=== PATIENT | male | born 1950 | race Caucasian/White ===

== ENCOUNTER → 2018-02-17 10:20 | Outpatient (CLI) | payer MEDICARE, SELFPAY ==
[2018-02-17 13:01] LABS: Anion Gap 13.3 mEq/L (5-15); Blood Urea Nitrogen 15 mg/dL (7-18); Carbon Dioxide 29 mmol/L (21.0-32.0); Chloride 104 mmol/L (98-107); Creatinine,Serum 0.91 mg/dL (0.70-1.30); Estimated Glomerular Filt Rate 83 ml/min (>60); GFR (African American) 101 ML/MIN (>60); Glucose 111 mg/dL (74-106); Potassium 4.3 mmoL/L (3.5-5.1); Sodium 142 mmol/L (136-145)
== END ==
PROVIDERS: Visit Provider Internal Medicine Cardiovascular Disease
DX: Z82.49 Family history of ischemic heart disease and other diseases of the circulatory system (principal); R53.83 Other fatigue; G47.33 Obstructive sleep apnea (adult) (pediatric); R40.0 Somnolence; G47.9 Sleep disorder, unspecified; I10 Essential (primary) hypertension; R06.02 Shortness of breath
CPT/HCPCS: 36415; 80048

== ENCOUNTER → 2018-02-24 14:21 | Outpatient (CLI) | payer MEDICARE, OTHER, SELFPAY ==
--- NOTE | 2018-02-24 14:25 | CT_ITS ---
CT heart w calcium score INDICATION: ITS.REASON: dyspnea ORDERING PHYSICIAN: Varun Gonzalez MD PATIENT AGE: 67 years COMPARISON: TECHNIQUE: Axial images are obtained without contrast. Sagittal and coronal reformatted images are reviewed as well. All CT scans at the facility use one or more dose reduction, viz: automated exposure control; ma/kV adjustment per patient size (including targeted exams where dose is matched to indication; i.e. head); or iterative reconstruction technique. FINDINGS: Coronary artery calcium score is 2. Minimal plaque burden with low cardiovascular disease risk Other findings: No other pertinent findings IMPRESSION: Low cardiovascular disease risk
--- NOTE | 2018-02-24 14:25 | CA_ITS ---
PROCEDURE: 2-D M-mode and color Doppler study INDICATIONS FOR THE TEST: Chest pain COPD Heart Murmur Tobacco Smoking Palpitations FatigueX Syncope Edema HypertensionXDiabetes Mellitus Rheumatic Fever SOBXDOEXObesityXHyperlipidemia Family History HDXX Additional History PATIENT INFORMATION HEIGHT: 70 WEIGHT:225 GENDER: Male B/P:133/90 2-D/M-MODE INTERPRETATION: 2-D MEASUREMENTS OBSERVED VALUES IN CMS Right Ventricular Dimension (RVDd) 2.6 Interventricular Septum (Thickness)(IVsd) .9 Left Ventricular Internal Dimensions(LVIDd) 5.4 Left Ventricular Posterior Wall (Thickness)(LVPWd) .9 Aortic Root 2.7 Aortic Cusp Separation 1.8 Left Atrial Dimensions (LAD) 3.7 2D 1. Technically difficult study because of the patient's factor and poor acoustic windows 2. The left atrium is mildly enlarged, left ventricle is normal size, visually estimated ejection fraction approximately 45%, there appears to be mild hypokinesis involving the distal septum and apical wall. 3. The aortic valve is minimally thickened and fibrosed. 4. The mitral and tricuspid valve leaflets are minimally thickened. 5. The pulmonic valve is poorly visualized. 6. No significant pericardial effusion noted. DOPPLER INTERROGATION: Doppler interrogation of the aortic, mitral and tricuspid valvular presence of mild mitral and tricuspid regurgitation, tricuspid and jet velocity insufficient for acquisition of the right ventricular systolic pressure, grade 1 diastolic dysfunction seen without tissue Doppler evidence of raised left atrial pressure. CONCLUSION: 1. Mildly enlarged left atrium, normal left ventricular size, visually estimated ejection fraction 45% with segmental wall motion abnormality described above. 1 diastolic dysfunction seen without tissue Doppler evidence of raised left atrial pressure. 2. Mild mitral and tricuspid regurgitation. 3. No significant pericardial effusion noted.
== END ==
PROVIDERS: Family Provider Family Medicine; PCP Family Medicine; Visit Provider Internal Medicine Cardiovascular Disease
DX: R06.02 Shortness of breath (principal); R06.00 Dyspnea, unspecified; R06.01 Orthopnea
CPT/HCPCS: 75571; 93306

== ENCOUNTER → 2018-06-18 20:02 | Outpatient (CLI) | payer MEDICARE, OTHER, SELFPAY | PROVIDERS: PCP Family Medicine; Visit Provider Internal Medicine Cardiovascular Disease | DX: G47.33 Obstructive sleep apnea (adult) (pediatric) (principal); I10 Essential (primary) hypertension; G47.10 Hypersomnia, unspecified; R06.83 Snoring | CPT/HCPCS: 95810 ==

== ENCOUNTER → 2018-12-19 10:28 | Outpatient (CLI) | payer MEDICARE, OTHER, SELFPAY ==
[2018-12-19 14:23] LABS: Blood Urea Nitrogen 17 mg/dL (7-18); Calcium 9.2 mg/dL (8.5-10.1); Carbon Dioxide 27 mmol/L (21.0-32.0); Chloride 102 mmol/L (98-107); Creatinine,Serum 1.04 mg/dL (0.70-1.30); Estimated Glomerular Filt Rate 71 ml/min (>60); GFR (African American) 86 ML/MIN (>60); Glucose 122 mg/dL (74-106); Sodium 142 mmol/L (136-145)
== END ==
PROVIDERS: Visit Provider Internal Medicine Cardiovascular Disease
DX: I51.9 Heart disease, unspecified (principal); R06.00 Dyspnea, unspecified; R60.9 Edema, unspecified
CPT/HCPCS: 36415; 80048; 83880

== ENCOUNTER → 2020-06-28 10:29 | Outpatient (POV) | payer MEDICARE, OTHER, SELFPAY | PROVIDERS: Visit Provider Dermatology | DX: Z00.00 Encounter for general adult medical examination without abnormal findings (principal) ==

== ENCOUNTER → 2020-07-25 14:37 | Outpatient (CLI) | payer MEDICARE, OTHER, SELFPAY ==
[2020-07-25 15:14] LABS: Microscopic, Urine URINE MICROSCOPIC (MICROSCOPIC)
[2020-07-25 15:18] LABS: Appearance,Urine CLEAR (Clear); Bilirubin,Urine Negative (Negative); Blood, Urine Negative (Negative); Color,Urine YELLOW (Yellow); Glucose,Urine (UA) Negative (Negative); Ketones,Urine Negative (Negative); Leukocyte Esterase,Urine Negative (Negative); Nitrate,Urine Negative (Negative); Protein,Urine Negative (Negative); Urobilinogen,Urine 0.2 EU/dl (0.2)
[2020-07-25 15:22] LABS: Basophils # 0.1 K/mm3 (0-0.2); Eosinophils # 0.3 K/mm3 (0.0-0.4); Hematocrit 43.8 % (42.0-52.0); Hemoglobin 14.9 g/dL (14.1-18.0); Lymphocytes # 2.8 K/mm3 (0.7-4.5); Lymphocytes % 34.1 % (10-50); Mean Corpuscular HGB Conc 34.1 g/dL (31.8-35.4); Mean Corpuscular Hemoglobin 31.5 pg (27.0-31.2); Mean Corpuscular Volume 92.3 fl (80-94); Mean Platelet Volume 8.6 fl (7.4-10.4); Monocytes # 0.6 K/mm3 (0.1-1.0); Monocytes % 7.9 % (1.7-9.3); Neutrophils # 4.3 K/mm3 (1.8-7.8); Platelet Count 272 K/mm3 (142-424); Red Blood Count 4.74 M/mm3 (4.60-6.20); Red Cell Distribution Width 13.2 % (11.5-17.5); White Blood Count 8.2 K/mm3 (4.8-10.8)
[2020-07-25 16:01] LABS: WBC,Urine Occasional #/hpf (0-3)
[2020-07-27 15:59] LABS: Covid-19 Nasal PCR Sendout Lex Not Detected
== END ==
PROVIDERS: PCP Family Medicine; Visit Provider Family Medicine
DX: Z03.818 Encounter for observation for suspected exposure to other biological agents ruled out (principal)
CPT/HCPCS: 36415; 81001; 85025; U0004

== ENCOUNTER → 2020-10-26 14:37 | Outpatient (CLI) | payer MEDICARE, OTHER, SELFPAY ==
[2020-10-26 15:23] LABS: Basophils # 0.1 K/mm3 (0-0.2); Basophils % 1.6 % (0.1-2.0); Eosinophils # 0.1 K/mm3 (0.0-0.4); Eosinophils % 1.5 % (0.1-12.0); Hematocrit 51.7 % (42.0-52.0); Hemoglobin 16.8 g/dL (14.1-18.0); Lymphocytes # 2.1 K/mm3 (0.7-4.5); Lymphocytes % 25.2 % (10-50); Mean Corpuscular HGB Conc 32.6 g/dL (31.8-35.4); Mean Corpuscular Hemoglobin 29.7 pg (27.0-31.2); Mean Corpuscular Volume 91.3 fl (80-94); Mean Platelet Volume 8.6 fl (7.4-10.4); Monocytes # 0.8 K/mm3 (0.1-1.0); Neutrophils # 5.3 K/mm3 (1.8-7.8); Neutrophils % 62.6 % (37.0-80.0); Platelet Count 288 K/mm3 (142-424); Red Blood Count 5.66 M/mm3 (4.60-6.20); Red Cell Distribution Width 13.9 % (11.5-17.5); White Blood Count 8.4 K/mm3 (4.8-10.8)
[2020-10-26 15:34] LABS: Anion Gap 10.2 mEq/L (5-15); Blood Urea Nitrogen 15 mg/dl (9-20); Calcium 9.5 mg/dl (8.4-10.2); Carbon Dioxide 28 mmol/L (22.0-30.0); Chloride 103 mmol/L (98-107); Estimated Glomerular Filt Rate 84 ml/min (>60); GFR (African American) 101 ML/MIN (>60); Glucose 112 mg/dl (74-100); Potassium 4.2 mmoL/L (3.5-5.1); Sodium 137 mmol/L (136-145)
[2020-10-27 14:44] LABS: Covid-19 Nasal PCR Sendout P&C NEGATIVE
== END ==
PROVIDERS: Internal Medicine Cardiovascular Disease; PCP Family Medicine; Visit Provider Family Medicine
DX: E78.2 Mixed hyperlipidemia (principal); I10 Essential (primary) hypertension; I25.10 Atherosclerotic heart disease of native coronary artery without angina pectoris; I42.9 Cardiomyopathy, unspecified; R94.31 Abnormal electrocardiogram [ECG] [EKG]; Z03.818 Encounter for observation for suspected exposure to other biological agents ruled out
CPT/HCPCS: 36415; 80048; 85025; U0004

== ENCOUNTER → 2020-11-01 13:00 | Outpatient (CLI) | payer MEDICARE, OTHER, SELFPAY ==
--- NOTE | 2020-11-01 13:01 | CA_ITS ---
APPROVED REPORT EXAM: Comprehensive 2D, Doppler, and color-flow Echocardiogram Cnc Service Engineer: Lilliana Adorno RT(R) Ht: 5 ft 10 in Wt: 230lbs BSA: 2.21 BP: 127/87 mmHg Indications: CAD, HTN, hyperlipidemia, palpitations, CM, DD 2D Dimensions LVOT 2.09 cm (M/F) 1.5-2.5 LVEF (Erwin's) 42.00 % M: 52 - 72 LV Volume 88.50 mL M: 62 - 150 LV Volume Index 40.04 mL/m2 M: 34 - 74 M-Mode Dimensions RVDd 3.11 cm (0.9-2.6) LA Diam 2.52 cm (1.9-4.0) LVDd 3.99 cm (3.5-5.7) Ao Diam 3.28 cm (2.0-3.7) LVDs 3.04 cm (3.5-5.7) IVSd 1.25 cm (0.6-1.1) PWd 1.14 cm (0.6-1.1) EF (Teich) 48.00% FS 23.80% EDV (Teich) 69.60 mL ESV (Teich) 36.20 mL LV Diastology E Decel Time 190.00 (160-240 msec) E/A Ratio 0.5 MED E' 5.30 (< 7 cm/sec) E'/MED E' Ratio 9.85 (>14) LAT E' 9.20 (<10 cm/sec) E/LAT E' Ratio 5.67 (>14) Mitral Valve MV E Max Shady. 52.00 (40-130 cm/s) MV A Velocity 99.00 (40-130 cm/s) E/A Ratio 0.53 MV Decel. Time 190.00 (160-240 ms) MV PHT 56.00 ms Left Ventricle Left atrium is mildly enlarged, left ventricle is normal size, mild concentric left ventricular hypertrophy, visually estimated ejection fraction 55% with no regional wall motion abnormality, grade 1 diastolic dysfunction seen without tissue Doppler evidence of raise left atrial pressure. Right Ventricle Right atrium and right ventricle mildly enlarged with normal contractility. Aortic Valve Aortic valve is minimally thickened and fibrosed, there is no aortic stenosis or aortic insufficiency. Mitral Valve Mitral valve is grossly normal, there is mild mitral regurgitation. Tricuspid Valve Tricuspid valve grossly normal, there is mild tricuspid regurgitation, tricuspid regurgitation jet velocity is inadequate for calculation of the right ventricular systolic pressure. Pulmonic Valve Pulmonic valve is poorly visualized. There is no pulmonic stenosis, there is mild pulmonic insufficiency. Great Vessels Aortic root is normal size. Pericardium No significant pericardial effusion noted. Conclusion 1. Mild biatrial enlargement, normal left ventricular size, visually estimated ejection fraction 55% with no regional wall motion abnormality, grade 1 diastolic dysfunction seen without tissue Doppler evidence of raise left atrial pressure. 2. Mild mitral and tricuspid regurgitation. 3. No significant pericardial effusion noted. Electronically signed by : Varun Gonzalez, 11/02/2020 05:41:23
== END ==
PROVIDERS: PCP Family Medicine; Visit Provider Internal Medicine Cardiovascular Disease
DX: E78.5 Hyperlipidemia, unspecified (principal); I25.10 Atherosclerotic heart disease of native coronary artery without angina pectoris; I42.9 Cardiomyopathy, unspecified; R94.31 Abnormal electrocardiogram [ECG] [EKG]
CPT/HCPCS: 93306

== ENCOUNTER 2020-11-23 16:58 | Emergency (ER) | payer MEDICARE, OTHER, SELFPAY ==
[2020-11-23 16:59] VITALS: BP 155/90; PULSE 89; RESP 18; TEMP 36.9; O2SAT 96; BMI 33.0
--- NOTE | 2020-11-23 17:20 | HMH.EDUTC ---
[facility] – [place] Disposition Clinical Impression: Viral syndrome, Exposure to COVID-19 virus Disposition: Home, Self-Care Condition on Discharge: Good Instructions: DI for COVID-19 (Suspected or Confirmed ), Preventing the Spread of Coronavirus Discharge Instructions Additional Instructions: Drink plenty of fluids. Take tylenol for pain or fever. Return if you begin to have difficulty breathing. Follow up with your regular doctor. GO TO THE ER FOR ANY WORSENING SYMPTOMS Prescriptions: Ondansetron [Zofran 4mg ODT] 4 mg PO Q8HP PRN #9 tab.rapdis PRN Reason: Nausea Transmission Status: Received by [facility] Azithromycin [Z-Be 250mg Tab*] 250 mg PO UD DOSE PK #6 tab Transmission Status: Received by [facility] Referrals: Avel Victoria MD [Primary Care Provider] - Time of Disposition: 17:54 Medical Decision Making - Medical Records Medical records reviewed: No: I reviewed the patient's medical records. - Sulaiman Inquiry Pt receiving controlled substance: No Vital Signs: 11/23/20 16:59 11/23/20 17:56 Temperature 98.4 F 98.4 F Temperature Source Oral Oral Pulse Rate 89 Pulse Rate [Right] 89 Respiratory Rate 18 18 Blood Pressure 155/90 H Blood Pressure [Right Arm] 155/90 H Blood Pressure Mean [Right Arm] 111 02 Sat by Pulse Oximetry 96 - Lab Data Lab Results 11/23/20 17:15: Influenza Type A Ag Negative, Influenza Type B Ag Negative Orders (Tests/Meds): ORDERS Category Date Time Status Covid-19 Nasal PCR Sendout P&C Stat Lab 11/23/20 17:10 Received - Radiology Data #1 Image(s): Chest Image Reviewed: Yes I reviewed the patient's radiology image, Yes I have reviewed radiologist's interpretation Preliminary Findings: No Infiltrates Seen PROCEDURE: XR CHEST 2V CLINICAL HISTORY: fatigue, shortness of breath COMPARISON: CR CXR CHEST(2 VIEWS-NOT PORTABLE) from 09/06/2017 FINDINGS: The cardiomediastinal silhouette and pulmonary vascularity are within normal limits. The lungs are clear without infiltrates, suspicious nodules, or pleural effusions. Minimal atelectatic change left CP angle. No acute bony findings IMPRESSION: Minimal left basilar atelectasis otherwise negative Dictated by: Brian Mitchell MD 11/24/2020 05:46 Brian Mitchell MD in [place] 11/24/2020 05:46 [facility] [place] HPI - General Stated complaint: lethargic, weakness indigestion slight headache Time Seen by Provider: 11/23/20 17:20 Description of Symptoms (Recalled from Triage Doc. by RN): pt request COVID test pt c/o weakness, body aches x 5 days HEENT Symptoms (Recalled from RN notes): No Resp Symptoms (Recalled from RN notes): No Skin Symptoms (Recalled from RN notes): No MS Symptoms (Recalled from RN notes): Yes Functional Status (Recalled from RN notes): wnl - History of Present Illness Provider Complaint: He states that he has felt bad for the past 5 days. His main complaint has been fatigue. Every afternoon he has had to take a nap. He denies any shortness of breath or chest pain. He has had a dry cough also. - Related Data Home Medications Medication Instructions Recorded Confirmed levothyroxine 75 mcg tablet 75 mcg PO DAILY tab 02/12/18 11/11/20 cholecalciferol (vitamin D3) 25 25 mcg PO DAILY 09/14/20 11/11/20 mcg (1,000 unit) capsule melatonin 5 mg capsule mg PO PRN 09/14/20 11/11/20 Previous Rx's Medication Instructions Recorded aspirin 81 mg tablet,delayed 81 mg PO DAILY #30 tab 03/27/19 release furosemide 20 mg tablet 20 mg PO Q OTHER DAY #45 tab 10/26/20 losartan 100 mg tablet 100 mg PO DAILY #90 tab 10/26/20 nifedipine 30 mg tablet,extended 30 mg PO DAILY #90 tab 10/26/20 release 24 hr potassium chloride 8 mEq 8 meq PO DAILY #90 tab 10/26/20 tablet,extended release rosuvastatin 5 mg tablet 5 mg PO DAILY #90 tab 10/26/20 Azithromycin [Z-Be 250mg Tab*] 250 mg PO UD DOSE PK #6 tab 11/23/20 Ondansetron [Zofran 4mg ODT] 4 mg
--- NOTE | 2020-11-23 17:28 | XR_ITS ---
PROCEDURE: XR CHEST 2V CLINICAL HISTORY: fatigue, shortness of breath COMPARISON: CR CXR CHEST(2 VIEWS-NOT PORTABLE) from 09/06/2017 FINDINGS: The cardiomediastinal silhouette and pulmonary vascularity are within normal limits. The lungs are clear without infiltrates, suspicious nodules, or pleural effusions. Minimal atelectatic change left CP angle. No acute bony findings IMPRESSION: Minimal left basilar atelectasis otherwise negative Dictated by: Brian Mitchell MD 11/24/2020 05:46 Brian Mitchell MD in [place] 11/24/2020 05:46
[2020-11-23 17:35] LABS: UTC Influenza A Antigen Negative (Negative); UTC Influenza B Antigen Negative (Negative)
[2020-11-23 17:56] VITALS: BP 155/90; PULSE 89; RESP 18; TEMP 36.9; O2SAT 96
[2020-11-25 11:12] LABS: Covid-19 Nasal PCR Sendout P&C Negative
== END 2020-11-23 17:59 | disposition home or self-care (01) ==
PROVIDERS: Emergency Provider Nurse Practitioner Family; PCP Family Medicine
DX: Z20.822 Contact with and (suspected) exposure to COVID-19 (principal); B34.9 Viral infection, unspecified; I10 Essential (primary) hypertension; E78.5 Hyperlipidemia, unspecified; I25.10 Atherosclerotic heart disease of native coronary artery without angina pectoris; E03.9 Hypothyroidism, unspecified; Z79.899 Other long term (current) drug therapy
CPT/HCPCS: G0463; 71046; 87804; 99202; U0004

== ENCOUNTER → 2021-06-08 16:14 | Outpatient (CLI) | payer MEDICARE, OTHER, SELFPAY ==
[2021-06-08 18:23] LABS: Adenovirus,PCR Not Detected (NotDetected); Bordetella Pertussis Not Detected (NotDetected); Chlamydophila Pneumoniae, PCR Not Detected (NotDetected); Coronavirus 19, PCR Not Detected (NotDetected); Coronavirus 229E Not Detected (NotDetected); Coronavirus NL63 Not Detected (NotDetected); Coronavirus OC43 Not Detected (NotDetected); Coronovirus HKU1,PCR Not Detected (NotDetected); Human Metapneumovirus Not Detected (NotDetected); Influenza A, PCR Not Detected (NotDetected); Influenza AH1, 2009 Not Detected (NotDetected); Influenza AH1, PCR Not Detected (NotDetected); Influenza AH3,PCR Not Detected (NotDetected); Influenza B, PCR Not Detected (NotDetected); Mycoplasma Pneumoniae, PCR Not Detected (NotDetected); Parainfluenza 1, PCR Not Detected (NotDetected); Parainfluenza 2, PCR Not Detected (NotDetected); Parainfluenza 3, PCR Not Detected (NotDetected); Parainfluenza 4, PCR Not Detected (NotDetected); Respiratory Syncytial Virus Not Detected (NotDetected); Rhinovirus/Enterovirus Not Detected (NotDetected)
== END ==
PROVIDERS: PCP Family Medicine; Visit Provider Physician Assistant
DX: Z20.822 Contact with and (suspected) exposure to COVID-19 (principal)
CPT/HCPCS: 87486; 87581; 87633; 87798; U0003

== ENCOUNTER → 2021-07-05 16:22 | Outpatient (CLI) | payer MEDICARE, OTHER, SELFPAY ==
--- NOTE | 2021-07-05 | XR_ITS ---
PROCEDURE: XR ORTHOPANTOGRAM CLINICAL INDICATION: Pain COMPARISON: No exams were available for comparison FINDINGS: The mandibular condyles and coronoid processes are not well delineated on this exam technically. There are numerous caries in both maxillary and mandibular. Numerous fillings are present in there is a dental implant in the right incisor region of the mandible. No obvious fracture. No bony destructive process. IMPRESSION: Numerous caries both mandibular and maxillary. Dictated by: Brian Mitchell MD 07/06/2021 12:57 Brian Mitchell MD in [place] 07/06/2021 12:57
== END ==
PROVIDERS: PCP Family Medicine; Visit Provider Family Medicine
DX: R29.898 Other symptoms and signs involving the musculoskeletal system (principal)
CPT/HCPCS: 70355

== ENCOUNTER 2021-12-11 13:14 | Emergency (ER) | payer MEDICARE, OTHER, SELFPAY ==
[2021-12-11 13:15] VITALS: BP 156/93; PULSE 104; RESP 18; TEMP 37.2; O2SAT 95; BMI 32.3
--- NOTE | 2021-12-11 13:19 | XR_ITS ---
FINAL REPORT TECHNIQUE: Single view chest CLINICAL HISTORY: soa COMPARISON: 11/23/2020 FINDINGS: A single view of the chest was obtained. The heart and mediastinum are within normal limits. The lungs are clear. There is no pneumothorax. Osseous structures are unremarkable. IMPRESSION: No acute cardiopulmonary process. Reviewed, Interpreted and Dictated by Kostas Garcia III, MD Transcribed by Vilma Marquis Authenticated by Kostas Garcia III, MD on 12/11/2021 02:07:32 PM [facility]
--- NOTE | 2021-12-11 13:19 | HMH.EDGENADL ---
ED Disposition Clinical Impression: Atypical chest pain Headache Qualifiers: Headache type: other headache syndrome Qualified Code(s): G44.89 - Other headache syndrome Disposition: Home, Self-Care Condition on Discharge: Good Instructions: DI for Headache, DI for Atypical Chest Pain Additional Instructions: follow up PCP and return for worse Prescriptions: Prochlorperazine Maleate [Compazine 10mg tablet] 10 mg PO Q8 PRN #30 tab PRN Reason: Headache Transmission Status: Pending to [facility] Referrals: Avel Victoria MD [Primary Care Provider] - - Critical Care Critical Care Time: No Attestation: On , the high probability of a clinically significant, sudden or life threatening deterioration of the following system(s) required my full and direct attention, intervention and personal management. The time I documented below is in addition to time spent performing reported procedures but includes the following listed in this critical care notation. Medical Decision Making - Medical Records Medical records reviewed: Yes: I reviewed the patient's medical records. - Sulaiman Inquiry Pt receiving controlled substance: No Vital Signs: 12/11/21 13:15 Temperature 98.9 F Temperature Source Oral Pulse Rate [Left Radial] 104 H Respiratory Rate 18 Blood Pressure [Right Arm] 156/93 H Blood Pressure Mean [Right Arm] 114 Blood Pressure Source [Right Arm] Automatic Cuff Blood Pressure Position [Right Arm] Sitting 02 Sat by Pulse Oximetry 95 Oxygen Delivery Method Room Air - Lab Data Lab Results 12/11/21 13:38: WBC 6.9, RBC 5.22, Hgb 15.7, Hct 48.2, MCV 92.5, MCH 30.2, MCHC 32.6, RDW 13.1, Plt Count 296, MPV 8.9, Neut % (Auto) 64.3, Lymph % (Auto) 23.2, [place] % (Auto) 7.6, Eos % (Auto) 2.6, Baso % (Auto) 2.3 H, Neut # (Auto) 4.4, Lymph # (Auto) 1.6, [place] # (Auto) 0.5, Eos # (Auto) 0.2, Baso # (Auto) 0.2 12/11/21 13:38: Sodium 140, Potassium 3.6, Chloride 103, Carbon Dioxide 28, Anion Gap 12.6, BUN 14, Creatinine 0.80, Estimated Creat Clear 99, Estimated GFR 96, Est GFR ( Amer) 116, Glucose 166 H, Calcium 9.1, Total Bilirubin 0.7, AST 48, ALT 45, Alkaline Phosphatase 88, Troponin I < 0.01, Total Protein 7.1, Albumin 4.4, Globulin 2.7, Albumin/Globulin Ratio 1.6 12/11/21 14:45: Urine Color Yellow, Urine Appearance Clear, Urine pH 6.0, Ur Specific [place] 1.025, Urine Protein Negative, Urine Glucose (UA) Negative, Urine Ketones Negative, Urine Blood Trace-i, Urine Nitrate Negative, Urine Bilirubin Negative, Urine Urobilinogen 0.2, Ur Leukocyte Esterase Negative, Urine RBC Occasional, Urine WBC None, Ur Squamous Epith Cells Occasional, Urine Bacteria None 12/11/21 15:40: Troponin I < 0.01 Result diagrams: 12/11/21 13:38 12/11/21 13:38 Orders (Tests/Meds): ORDERS Category Date Time Status Troponin I Q3H Lab 12/11/21 19:30 Ordered ECG Request by /Nse Stat Y 12/11/21 13:19 Ordered Medical Decision Narrative: ekg by me nsr, low volt, no st elev General Adult HPI - General Stated complaint: SOA Time Seen by Provider: 12/11/21 13:19 Mode of Arrival: Ambulatory Source of Information: Patient Limitations: No Limitations - History of Present Illness HPI narrative: espinoza radiating from chest, fatigue, ororous urine, sent by pcp for eval Onset (ago): day(s) Radiation: non-radiation Severity: moderate Consistency: constant, intermittent Exacerbating factors: none Associated symptoms: denies other symptoms, headaches - Related Data Home Medications Medication Instructions Recorded Confirmed levothyroxine 75 mcg tablet 75 mcg PO DAILY tab 02/12/18 12/01/21 cholecalciferol (vitamin D3) 25 25 mcg PO DAILY 09/14/20 12/01/21 mcg (1,000 unit) capsule melatonin 5 mg capsule mg PO PRN 09/14/20 12/01/21 potassium chloride 8 mEq 8 meq PO Q OTHER DAY tab 12/01/21 tablet,extended release Previous Rx's Medication Instructions Recorded aspirin 81 mg tablet,delayed 81 mg PO D
[2021-12-11 13:59] LABS: Alanine Aminotransferase 45 U/L (12-78); Albumin Level 4.4 g/dl (3.5-5.0); Albumin/Globulin Ratio 1.6 (1.1-1.8); Alkaline Phosphatase 88 U/L (38-126); Anion Gap 12.6 mEq/L (5-15); Aspartate Amino Transferase 48 U/L (17-59); Basophils # 0.2 K/mm3 (0-0.2); Basophils % 2.3 % (0.1-2.0); Bilirubin,Total 0.7 mg/dl (0.2-1.3); Blood Urea Nitrogen 14 mg/dl (9-20); Calcium 9.1 mg/dl (8.4-10.2); Carbon Dioxide 28 mmol/L (22.0-30.0); Chloride 103 mmol/L (98-107); Creatinine Clearance Estimated 99 mL/min (50-200); Eosinophils # 0.2 K/mm3 (0.0-0.4); Eosinophils % 2.6 % (0.1-12.0); Estimated Glomerular Filt Rate 96 ml/min (>60); GFR (African American) 116 ML/MIN (>60); Globulin 2.7 g/dL (1.3-3.2); Glucose 166 mg/dl (74-100); Hematocrit 48.2 % (42.0-52.0); Hemoglobin 15.7 g/dL (14.1-18.0); Lymphocytes # 1.6 K/mm3 (0.7-4.5); Lymphocytes % 23.2 % (10-50); Mean Corpuscular HGB Conc 32.6 g/dL (31.8-35.4); Mean Corpuscular Hemoglobin 30.2 pg (27.0-31.2); Mean Corpuscular Volume 92.5 fl (80-94); Mean Platelet Volume 8.9 fl (7.4-10.4); Monocytes # 0.5 K/mm3 (0.1-1.0); Monocytes % 7.6 % (1.7-9.3); Neutrophils # 4.4 K/mm3 (1.8-7.8); Neutrophils % 64.3 % (37.0-80.0); Platelet Count 296 K/mm3 (142-424); Potassium 3.6 mmoL/L (3.5-5.1); Red Blood Count 5.22 M/mm3 (4.60-6.20); Red Cell Distribution Width 13.1 % (11.5-17.5); Sodium 140 mmol/L (136-145); Total Protein,Serum 7.1 g/dl (6.3-8.2); White Blood Count 6.9 K/mm3 (4.8-10.8)
[2021-12-11 14:10] LABS: Troponin I < 0.01 ng/ml (0.00-0.034)
--- NOTE | 2021-12-11 14:27 | ECG_ITS ---
APPROVED REPORT Exam: Resting ECG HR:85 bpm ECG Measurements Heart Rate 85 AXES [place] 174 P 34 QRSd 96 QRS 28 QT 347 T 47 QTc 389 Conclusion SINUS RHYTHM LOW QRS VOLTAGE IN PRECORDIAL LEADS [QRS DEFLECTION < 1.0 mV IN CHEST LEADS] BORDERLINE ECG UNCONFIRMED REPORT Electronically signed by : Jerry Baeza MD 12/11/2021 20:33:35
[2021-12-11 14:49] LABS: Microscopic, Urine URINE MICROSCOPIC (MICROSCOPIC)
[2021-12-11 15:27] LABS: Appearance,Urine CLEAR (Clear); Bilirubin,Urine Negative (Negative); Blood, Urine TRACE-I (Negative); Color,Urine YELLOW (Yellow); Glucose,Urine (UA) Negative (Negative); Ketones,Urine Negative (Negative); Leukocyte Esterase,Urine Negative (Negative); Nitrate,Urine Negative (Negative); Protein,Urine Negative (Negative); Specific Gravity, Urine 1.025 (1.005-1.030); Urobilinogen,Urine 0.2 EU/dl (0.2)
[2021-12-11 15:40] LABS: RBC,Urine Occasional #/hpf (0-3); Squamous Epithelial Cell,Urine Occasional #/hpf (0-5)
[2021-12-11 16:21] LABS: Troponin I < 0.01 ng/ml (0.00-0.034)
[2021-12-11 17:29] VITALS: BP 141/86; PULSE 98; RESP 18; TEMP 37.2; O2SAT 96
== END 2021-12-11 17:31 | disposition home or self-care (01) ==
PROVIDERS: Emergency Provider Emergency Medicine; PCP Family Medicine
DX: R07.89 Other chest pain (principal); G44.89 Other headache syndrome; I25.10 Atherosclerotic heart disease of native coronary artery without angina pectoris; E78.5 Hyperlipidemia, unspecified; I10 Essential (primary) hypertension
CPT/HCPCS: 36415; 71045; 80053; 81001; 84484; 85025; 93005; 99283

== ENCOUNTER → 2022-03-13 11:10 | Outpatient (POV) | payer MEDICARE, OTHER, SELFPAY | PROVIDERS: Visit Provider Dermatology | DX: Z00.00 Encounter for general adult medical examination without abnormal findings (principal) ==

== ENCOUNTER → 2022-07-20 11:33 | Outpatient (CLI) | payer MEDICARE, OTHER, SELFPAY ==
--- NOTE | 2022-07-20 11:37 | XR_ITS ---
FINAL REPORT CLINICAL HISTORY: pain FINDINGS: 3 weight-bearing views of the right foot were obtained. There is no acute fracture or dislocation. There are mild degenerative changes. There are calcifications anterior to the tibiotalar joint worrisome for loose bodies. IMPRESSION: Mild degenerative changes. Calcifications worrisome for loose bodies anterior to the tibiotalar joint. Reviewed, Interpreted and Dictated by Kostas Garcia III, MD Transcribed by Shabbir Dubose Authenticated and [facility]
--- NOTE | 2022-07-20 11:37 | XR_ITS ---
FINAL REPORT CLINICAL HISTORY: pain FINDINGS: 3 weight-bearing views of the left foot were obtained. There is no acute fracture or dislocation. There are mild degenerative changes. The soft tissues are unremarkable. IMPRESSION: Mild degenerative change. Reviewed, Interpreted and Dictated by Kostas Garcia III, MD Transcribed by Shabbir Dubose Authenticated and . [facility]
== END ==
PROVIDERS: PCP Family Medicine; Visit Provider Nurse Practitioner Family
DX: M79.671 Pain in right foot (principal); M79.672 Pain in left foot
CPT/HCPCS: 73630

== ENCOUNTER → 2023-03-14 11:22 | Outpatient (CLI) | payer MEDICARE, OTHER, SELFPAY ==
--- NOTE | 2023-03-14 11:26 | XR_ITS ---
FINAL REPORT CLINICAL HISTORY: Nonspecific cough COMPARISON: 12/11/2021 FINDINGS: There is no evidence of effusion or other pleural disease. The mediastinum has a normal appearance. The cardiac silhouette is unremarkable. IMPRESSION: Unremarkable chest exam. Reviewed, Interpreted and Dictated by Avel Patricio MD Transcribed by Conchis Muniz Authenticated and [facility]
== END ==
PROVIDERS: PCP Family Medicine; Visit Provider Nurse Practitioner Family
DX: E78.2 Mixed hyperlipidemia (principal); I10 Essential (primary) hypertension; I25.10 Atherosclerotic heart disease of native coronary artery without angina pectoris; I42.9 Cardiomyopathy, unspecified; R00.0 Tachycardia, unspecified; R05.9 Cough, unspecified
CPT/HCPCS: 71046

== ENCOUNTER 2023-06-19 10:41 | Emergency (ER) | payer MEDICARE, OTHER, SELFPAY ==
[2023-06-19 10:42] VITALS: BP 130/89; PULSE 87; RESP 16; TEMP 36.8; O2SAT 95; BMI 33.0
--- NOTE | 2023-06-19 10:52 | EXP.UTC ---
Discharge Plan Disposition Patient Disposition: Home, Self-Care Condition: Good Prescriptions Prescriptions: New methylprednisolone 4 mg Tablets,Dose Pack 4 mg PO DIRECTED Qty: 21 0RF diclofenac sodium 1 % gel 4 g topical QID PRN (Reason: foot pain) Qty: 100 0RF Rx Instructions: apply to single knee, ankle, foot; for foot includes sole/toes/top of foot No Action levothyroxine 75 mcg tablet 75 mcg PO DAILY nifedipine 30 mg tablet extended release 24hr 30 mg PO DAILY Qty: 90 3RF rosuvastatin 10 mg tablet 10 mg PO DAILY Qty: 90 3RF aspirin [Adult Low Dose Aspirin] 81 mg tablet,delayed release (DR/EC) 81 mg PO DAILY Qty: 30 5RF cholecalciferol (vitamin D3) 25 mcg (1,000 unit) capsule 25 mcg PO DAILY melatonin 5 mg capsule 5 mg PO PRN diclofenac sodium 1 % gel 4 g topical QID PRN (Reason: pain ) 30 Days Qty: 100 2RF Rx Instructions: apply to single, ankle, foot; for foot includes sole/toes/top of foot fluticasone propionate 50 mcg/actuation spray,suspension 1 spray intranasal DAILY PRN potassium chloride 8 mEq tablet extended release See Rx Instructions .ROUTE .COMPLEX Qty: 90 2RF Dose Instruction: TAKE 1 TABLET BY MOUTH ONCE DAILY Rx Instructions: TAKE 1 TABLET BY MOUTH ONCE DAILY losartan 50 mg tablet See Rx Instructions .ROUTE .COMPLEX Qty: 90 1RF Dose Instruction: TAKE 1 TABLET BY MOUTH ONCE DAILY Rx Instructions: TAKE 1 TABLET BY MOUTH ONCE DAILY metoprolol succinate 25 mg tablet extended release 24 hr See Rx Instructions .ROUTE .COMPLEX Qty: 90 1RF Dose Instruction: TAKE 1 TABLET BY MOUTH ONCE DAILY Rx Instructions: TAKE 1 TABLET BY MOUTH ONCE DAILY Referrals Follow up/Referrals: Avel Victoria MD [Primary Care Provider] - See instructions Activity Restrictions/Add. Instructions Additional Instructions/Restrictions: Rest the extremity, Elevate the extremity as tolerated while you are resting. Take the medication as directed. Follow up with Dr. Lechuga (podiatry). Please follow up there if you continue to have symptoms. Follow up with your regular doctor. GO TO THE ER FOR ANY WORSENING SYMPTOMS Clinical Impressions Clinical Impression: Foot pain, right, Tendinitis of right foot Stand Alone Forms Stand Alone Forms: Work/School Release Instructions Patient Instructions: DI for Foot Pain, Diclofenac Topical (arthritis pain), Methylprednisolone Discharge ED Provider: Salvador Vela [facility] [place] HPI General Stated complaint: right foot pain, unknown origin Time Seen by Provider: 06/19/23 10:52 History of Present Illness Provider Complaint: He c/o right foot pain for the past 2 weeks. He denies any known injury. Related Data Home Medications Medication Instructions Recorded Confirmed levothyroxine 75 mcg tablet 75 mcg PO DAILY 02/12/18 05/30/23 cholecalciferol (vitamin D3) 25 25 mcg PO DAILY 09/14/20 05/30/23 mcg (1,000 unit) capsule melatonin 5 mg capsule 5 mg PO PRN 03/14/23 05/30/23 fluticasone propionate 50 1 spray intranasal DAILY PRN 05/21/23 05/30/23 mcg/actuation nasal spray,suspension Previous Rx's Medication Instructions Recorded aspirin 81 mg tablet,delayed 81 mg PO DAILY #30 tabs 03/27/19 release (Adult Low Dose Aspirin) diclofenac sodium 1 % topical gel 4 g topical QID PRN pain 30 days 07/23/22 #100 grams nifedipine 30 mg tablet,extended 30 mg PO DAILY #90 tabs 09/14/22 release 24 hr rosuvastatin 10 mg tablet 10 mg PO DAILY #90 tabs 09/14/22 potassium chloride 8 mEq See Rx Instructions .Route 12/11/22 tablet,extended release .COMPLEX #90 tabs losartan 50 mg tablet See Rx Instructions .Route 05/30/23 .COMPLEX #90 tabs metoprolol succinate 25 mg See Rx Instructions .Route 06/13/23 tablet,extended release 24 hr .COMPLEX #90 tabs diclofenac sodium 1 % topical gel 4 g topical QID PRN foot pain #100 06/19/23 grams methylpr
[2023-06-19 11:16] VITALS: BP 130/89; PULSE 87; RESP 16; TEMP 36.8; O2SAT 95
== END 2023-06-19 11:17 | disposition home or self-care (01) ==
PROVIDERS: Emergency Provider Nurse Practitioner Family; PCP Family Medicine
DX: M79.671 Pain in right foot (principal); M77.51 Other enthesopathy of right foot and ankle; I25.10 Atherosclerotic heart disease of native coronary artery without angina pectoris; I11.9 Hypertensive heart disease without heart failure
CPT/HCPCS: 99212; 99214; G0463

== ENCOUNTER → 2023-10-01 09:10 | Outpatient (POV) | payer MEDICARE, OTHER, SELFPAY | PROVIDERS: PCP Family Medicine; Visit Provider Dermatology | DX: Z00.00 Encounter for general adult medical examination without abnormal findings (principal) ==

== ENCOUNTER 2025-03-09 15:32 | Outpatient (CLI) | payer MEDICARE, OTHER, SELFPAY ==
--- NOTE | 2025-03-09 | CA_ITS ---
APPROVED REPORT EXAM: Comprehensive 2D, Doppler, and color-flow Echocardiogram Oil Burner Technician: FLAKO Domingo, RVS Ht: 5 ft 10 in Wt: 225lbs BSA: 2.19 BP: 114/87 mmHg Indications: Fatigue, Diastolic dysfunction, MIESHA, CAD, HTN, HLD 2D Dimensions Left Atrium 2.69 cm LA Volume 54.50 mL LA Volume Index 24.478481 mL/m2 (M/F) 16-34 EF AP4 43.40 % GL Strain -16.5 % M-Mode Dimensions RVDd 3.21 cm (0.9-2.6) LA Diam 3.37 cm (1.9-4.0) LVDd 3.64 cm (3.5-5.7) LVDs 2.61 cm (3.5-5.7) IVSd 1.21 cm (0.6-1.1) PWd 1.04 cm (0.6-1.1) EF (Teich) 55.60% FS 28.30% EDV (Teich) 55.90 mL TAPSE 1.49 (<1.7) ESV (Teich) 24.80 mL LV Diastology E Decel Time 192 (160-240 msec) E/A Ratio 0.47 MED A' 10.80 cm/s LAT A' 12.90 cm/s Aortic Valve CHESTER Index 1.24 cm2/m2 AoV Peak Shady. 92.0 (50-130 cm/s) AO Peak GR. 3.40 mmHg AO Mean GR. 1.70 (<5 mmHg) AO VTI 16.7 (18-25 cm) CHESTER (VTI) 2.79 (2.5-4.5 cm2) Mitral Valve MV A Velocity 101.0 (40-130 cm/s) E/A Ratio 0.47 MV Mean Gr. 1.50 (<2mmHg) Pulmonary Valve RI End VMAX 150.0 cm/s Left Ventricle The left ventricle is normal size. The left ventricular systolic function is low normal. There is increased LV wall thickness. There is normal LV segmental wall motion. Transmitral Doppler flow pattern suggests impaired LV relaxation. LVEF is 50%. Right Ventricle Right ventricle is mildly dilated. Right ventricle is borderline hypokinetic. Atria The left atrium size is normal. The right atrium size is normal. There is no Doppler evidence of interatrial shunt. Aortic Valve Aortic valve is mildly thickened. There is no aortic valvular stenosis. Trace aortic regurgitation. Mitral Valve The mitral valve is normal in structure. No evidence of mitral valve stenosis. Trace mitral regurgitation. Tricuspid Valve Tricuspid valve is grossly normal in structure and function. Trace tricuspid regurgitation. There is insufficient TR jet to estimate RVSP. Pulmonic Valve The pulmonary valve is normal in structure. Mild pulmonic regurgitation. Great Vessels The aortic root is normal in size. The ascending aorta is mildly dilated, measuring 3.8 cm in diameter. IVC is normal in size and collapses >50% with inspiration. Pericardium There is no pericardial effusion. Other Information Study Quality: Fair Conclusion Low normal biventricular systolic function (LVEF 50%). No significant valvular stenosis or regurgitation. Mildly dilated ascending aorta, measuring 3.8 cm in diameter. In the setting of mildly dilated ascending aorta, correlation with new or recent CTA chest is suggested. Electronically signed by : Tiffany Olmstead MD 03/16/2025 12:49:32
== END 2025-03-09 23:59 | disposition home or self-care (01) ==
LOC: RT 15:33
PROVIDERS: PCP Family Medicine; Visit Provider Nurse Practitioner Family
DX: I37.1 Nonrheumatic pulmonary valve insufficiency (principal); I77.810 Thoracic aortic ectasia; I11.9 Hypertensive heart disease without heart failure; I25.10 Atherosclerotic heart disease of native coronary artery without angina pectoris; G47.33 Obstructive sleep apnea (adult) (pediatric); E78.5 Hyperlipidemia, unspecified
CPT/HCPCS: 93306

== ENCOUNTER 2025-08-11 10:44 | Outpatient (CLI) | payer MEDICARE, OTHER, SELFPAY ==
[2025-08-11 13:00] LABS: Blood Urea Nitrogen 17 mg/dl (9-20); Creatinine,Serum 1.00 mg/dl (0.66-1.25); Estimated Glomerular Filt Rate 73 ml/min (>60); GFR (African American) 89 ML/MIN (>60)
== END 2025-08-11 23:59 | disposition home or self-care (01) ==
LOC: LAB 10:46
PROVIDERS: PCP Family Medicine; Visit Provider Nurse Practitioner Family
DX: I25.10 Atherosclerotic heart disease of native coronary artery without angina pectoris (principal); E78.5 Hyperlipidemia, unspecified; I11.9 Hypertensive heart disease without heart failure; I77.810 Thoracic aortic ectasia
CPT/HCPCS: 36415; 82565; 84520

== ENCOUNTER 2025-08-19 08:41 | Outpatient (CLI) | payer MEDICARE, OTHER, SELFPAY ==
--- OUTSIDE RECORDS SUMMARY | 2025-01-11 11:00 | XMS_ITS ---
Author Organization [facility] Address [address] [facility] [address] [place] [id number] Care Team Providers Care Recreational Therapy Technician Name Role Phone Imani Victoria Primary Care Provider Allergies No Known Allergies Results Component Value Reference Range Notes P-Vitamin B12 Reviewed date:01/13/2025 12:48:14 PM Interpretation:Normal Performing Lab: Notes/Report: Test performed by [facility] [address] [place] [address] , [address], [place] [address] Emeka Hood MD, Orderly CLIA: [id number] Vitamin B12 [phone] pg/mL P-Comprehensive Metabolic Pa aamir (CMP) Reviewed date:01/13/2025 12:48:14 PM Interpretation:Normal Performing Lab: Notes/Report: Test performed by [facility] [address] [place] [address] , [address], [place] [address] Emeka Hood MD, Orderly CLIA: [id number] Sodium 142 135-145 mmol/L Potassium 4.5 3.5-5.3 mmol/L Chloride 104 97-108 mmol/L CO2 28 22-32 mmol/L Glucose 102 65-99 mg/dL BUN 18 8-23 mg/dL Creatinine 1.08 0.70-1.30 mg/dL Calcium 9.6 8.6-10.4 mg/dL eGFR by Creatinine 72 >59 mL/min/1.73m2 Protein 6.7 6.0-8.3 g/dL Albumin 4.0 3.5-5.3 g/dL Alkaline Phosphatase 102 40-129 IU/L ALT (SGPT) 51 <5-55 IU/L AST (SGOT) 33 <5-46 IU/L Bilirubin, Total 0.3 <0.2-1.2 mg/dL A/G Ratio 1.5 1.1-2.5 REASON FOR VISIT f/u from surgery Medications Medication SIG (Take, Route, Frequency, Duration) Notes Start Date End Date Status Nystatin-Triamcinolone 052197-3.1 UNIT/GM 1 rajat applied topically 2 times a day Active Losartan Potassium 50 MG 1/2 orally once a day; Duration: 30 day(s) Active Levothyroxine Sodium 75 MCG 1 tab(s) ora lly once a day; Duration: 90 days Active Fluticasone Propionate 50 MCG/ACT 2 spray(s) intranasally once a day Active Crestor 5 MG 1 tab(s) orally once a day; Duration: 30 day(s) Active Metoprolol Succinate ER 25 MG 1 tablet Orally Once a day Active Potassium Chloride ER 8 MEQ TAKE 1 TABLE T BY MOUTH ONCE DAILY; Duration: 30 Active Vitamin B-12 1000 MCG 1 tablet Orally On ce a day; Duration: 30 day(s) 01/11/2025 Active Aspirin Low Dose 81 MG 1 tab(s) orally o nce a day 01/09/2017 Active metFORMIN HCl 500 MG 1 tablet with a rodney l Orally Once a day; Duration: 30 day(s) Active Vital Signs Weight 227.8 lbs 01/11/2025 Blood pressure systolic 112 mm Hg 01/12/20 25 Blood pressure diastolic 70 mm Hg 025 Heart Rate 91 /min 01/11/2025 Height 70 in 01/11/2025 BMI 32.68 kg/m2 01/11/2025 Encounters Encounter Location Date Provider Diagnosis [facility] [address] [place], [place] [id number] 01/11/2025 Imani Victoria Essential hypertensi on I10 ; Hypothyroidism (acquired) E03.9 and Vitamin B12 deficiency E53.8 Assessments Encounter Date Diagnosis (ICD Code) Assessment Notes Treatment Notes Treatment Clinical Notes Section Notes 01/11/2025 Essential hypertension (ICD-10 - I10) 01/11/2025 Hypothyroidism (acquired) (ICD-10 - E03.9) 01/11/2025 Vitamin B12 deficiency (ICD-10 - E53.8) Plan Of Treatment Medication Medication Name Sig Start Date Stop Date Notes NIFEdipine ER 30 MG 1 cap(s) orally once a day Vitamin B-12 1000 MCG 1 tablet Orally On ce a day; Duration: 30 day(s) 01/11/2025 Next Appt Details Follow Up: 4 Weeks, Reason: Provider Name:Imani Melgoza er, 09/20/2025 02:15:00 PM, [address], [address], [place], [place], [id number], Medications Administered Medication Instructions Date of Administration Dosage Notes B-12 01/11/2025 1 mL Progress Notes * TD ZAZUETA WDOB:[birth year] (74 yo M)Acc No.[id number]:01/11/2025 Patient: TD OLIVO Provider: Imani Victoria M.D. :1950 A ge:74 Y S ex:Male Date:01/11/2025 Address:[place] [address], [id number] Subjective: * Chief Complaints: * 1 . F/u from surgery. * HPI: H PI: 74 year old male presents with c/o Here for follow up on: P t sts he is here today for a f/u from hernia surgery he had done on the 25 of November. Pt sts he is doing well after the surgery and sts that everything is healed up. Pt sts he went back to the surgeon and he stated that everything looked good. C onstitutional: c/o fatigue B P's running low. * ROS: D ERMATOLOGY: no R angela. n o H edison. G ASTROENTEROLOGY: no N ausea. n o V omiting. n o D iarrhea.? U ROLOGY: no D ifficulty urinating. n o B lood in urine. * Medical History: H ypothyroidism 2011, Hypertension 2004, Cardiac stress test January 2017, MIESHA-CPaP. * Surgical History: t onsillectomy , Cardiac Stress Test x2 - negative results February 2017, Heart Cath negative 01/19/2019, left inguinal herniorrhaphy 11/25/2024. * Family History: F ather: alive 98 yrs, diagnosed with Stroke. M other: alive 90 yrs, diagnosed with Diabetes. 1 brother(s) , 2 sister(s) - healthy. 1 son(s) , 1 daughter(s) - healthy. . Father with colostomy, Carotid artery stenosis. * Social History: C URRENT TOBACCO USE: No . C affeine: yes, frequency:daily. Exercise: no. Home smoke detector use: yes. Marital Status: Single. Past smoking status: never smoked. Recreational drug use: no. Alcohol: No. * Medications: T aking Metoprolol Succinate ER 25 MG Tablet Extended Release 24 Hour 1 tablet Orally Once a day , Taking Aspirin Low Dose 81 MG Tablet Delayed Release 1 tab(s) orally once a day , Taking NIFEdipine ER 30 MG Tablet Extended Release 24 Hour 1 cap(s) orally once a day , Taking Crestor 5 MG Tablet 1 tab(s) orally once a day , Taking Fluticasone Propionate 50 MCG/ACT Suspension 2 spray(s) intranasally once a day , Taking Levothyroxine Sodium 75 MCG Tablet 1 tab(s) orally once a day , Taking Losartan Potassium 50 MG Tablet 1/2 orally once a day , Taking Nystatin- Triamcinolone 623973-5.1 UNIT/GM Cream 1 rajat applied topically 2 times a day , Taking metFORMIN HCl 500 MG Tablet 1 tablet with a meal Orally Once a day , Taking Potassium Chloride ER 8 MEQ Tablet Extended Release TAKE 1 TABLET BY MOUTH ONCE DAILY , Medication List reviewed and reconciled with the patient * Allergies: N .K.D.A. Objective: * Vitals: W t:227.8, Temp:98.6, BP:112/70, HR:91, O2 Sat:95% on RA, Nurse:[facility], Ht: 70, BMI:32.68. * Examination: G eneral Examination: General Appearance: N AD. H EENT: u nremarkable.?Oral cavity: n o lesions, mucosa moist and WNL, no erythema. N rosemarie: s upple, no lymphadenopathy. C hest: n ormal shape and expansion. H eart: R SR. L ungs: c lear to auscultation. A bdomen: soft and nontender, no organomegaly or masses. N eurologic Exam: I ntact, gait normal. S kin: n ormal, no rash. P eripheral pulses: n ormal . B ack: normal. E xtremities: t race l eg edema. G enitalia:?not examined. Assessment: * Assessment: 1. E ssential hypertension - I10 (Primary) 2 . H ypothyroidism (acquired) - E03.9 3 . V itamin B12 deficiency - E53.8 Plan: * Treatment: Value Reference Range A /G Ratio 1.5 1.1-2.5 - * A lbumin 4.0 3.5-5.3 - g/dL * A lkaline Phosphatase 102 40-129 - IU/L * A LT (SGPT) 51 <5-55 - IU/L * A ST (SGOT) 33 <5-46 - IU/L * B ilirubin, Total 0.3 <0.2-1.2 - mg/dL * B UN 18 8-23 - mg/dL * C alcium 9.6 8.6-10.4 - mg/dL * C hloride 104 97-108 - mmol/L * C O2 28 22-32 - mmol/L * C reatinine 1.08 0.70-1.30 - mg/dL * G lucose 102 H 65-99 - mg/dL * P otassium 4.5 3.5-5.3 - mmol/L * S odium 142 135-145 - mmol/L * P rotein 6.7 6.0-8.3 - g/dL * e GFR by Creatinine 72 >59 - mL/min/1.73m2 * Bozena Saucedo 01/13/2025 12: 47:25 PM >Patient informed of normal results. 2.?Vitamin B12 deficiency? Start Vitamin B-12 Tablet, 1000 MCG, 1 tablet, Orally, Once a day, 30 day(s), 30.?LAB: P-Vitamin B12 (Collection Date & Time - 01/11/2025 03:12 PM)?Normal* Value Reference Range V itamin B12 927 827-6147 - pg/mL * Bozena Saucedo 01/13/2025 12: 47:25 PM >Patient informed of normal results. * Therapeutic Injections: B-12 : 1 mL (Route: Intramuscular) given by Bozena Saucedo on right deltoid (Vitamin B12 deficiency) * Procedure Codes: G 2211 Complex e/m visit add on, J3420 B-12, 50952 ADMINISTRATION OF INJECTION, G8752 MOST RECENT SYSTOLIC BP < 140MM HG, G8754 MOST RECENT DIASTOLIC BP < 90MM HG * Follow Up: 4 Weeks * Images: Billing Information: * Visit Code: 96446 Office Visit, Est Pt., Level 4. Modifiers: 25 * Procedure Codes: G2211 Complex e/m visit add on. J3420 B-12. 94910 ADMINISTRATION OF INJECTION. G8752 MOST RECENT SYSTOLIC BP < 140MM HG. G8754 MOST RECENT DIASTOLIC BP < 90MM HG. * Electronic signature of Imani Victoria MD on 08/19/2025 at 08:51 AM EDT Sign off status: Pending * Provider: Imani Victoria M.D. Date: 0 01/11/2025 Generated for Yong cortez/Jennifer/eTransmitting on: 1 08:51 AM EDT History and Physical Notes * HPI (History of Present Illness) Category Sub-Category Detail Notes Category Not es Constitutional fatigue BP's running low HPI Here for follow up on: Pt sts he is here today for a f/u from hernia surgery he had done on the 25 of November. Pt sts he is doing well after the surgery and sts that everything is healed up. Pt sts he went back to the surgeon and he stated that everything looked good Examination Category Sub-Category Detail Notes Category Not es General Examination HEENT: unremarkable Heart: RSR Lungs: clear to auscultatio n Abdomen: soft and nontender, no organomegaly or masses Extremities: trace leg edema General Appearance: NAD Skin: normal, no rash Neurologic Exam: Intact, gait normal Neck: supple, no lymphaden opathy Oral cavity: no lesions, mucosa m oist and WNL, no erythema Peripheral pulses: normal Back: normal Genitalia: not examined Chest: normal shape and exp ansion
--- OUTSIDE RECORDS SUMMARY | 2025-02-08 10:00 | XMS_ITS ---
Author Organization [facility] Address [address] [place] [id number] Care Team Providers Care Plastics Engineering Teacher Name Role Phone Imani Victoria Primary Care Provider Allergies No Known Allergies Reason For Referral Reason needs follow-up CAD Diagnosis 1 Arteriosclerotic cor onary artery disease (I25.10) Referral Organization [facility] Referring Provider First Name Imani Delgado Referring Provider Last Name Julien Referring Provider Speciality Family Pra ctice General Notes Christen Lopez 2024 03:19:10 PM > patient sees Avtar Wall; sent to [facility] Cardiology Referral Priority Routine REASON FOR VISIT 1 month ckup Medications Medication SIG (Take, Route, Frequency, Duration) Notes Start Date End Date Status Fluticasone Propionate 50 MCG/ACT 2 spray(s) intranasally once a day Active Crestor 5 MG 1 tab(s) orally once a day; Duration: 30 day(s) Active Aspirin Low Dose 81 MG 1 tab(s) orally o nce a day 01/09/2017 Active Metoprolol Succinate ER 25 MG 1 tablet Orally Once a day Active Nystatin-Triamcinolone 567219-8.1 UNIT/GM 1 application Externally Twice a day 02/08/2025 Active Losartan Potassium 50 MG 1/2 orally once a day; Duration: 30 day(s) Active Vitamin B-12 1000 MCG 1 tablet Orally On ce a day; Duration: 30 day(s) 01/11/2025 Active Potassium Chloride ER 8 MEQ TAKE 1 TABLE T BY MOUTH ONCE DAILY; Duration: 30 Active metFORMIN HCl 500 MG 1 tablet with a rodney l Orally Once a day; Duration: 30 day(s) Active Nystatin-Triamcinolone 968352-0.1 UNIT/GM 1 rajat applied topically 2 times a day Active Levothyroxine Sodium 75 MCG 1 tab(s) ora lly once a day; Duration: 90 days Active Problems Problem Type SNOMED Code ICD Code Onset Dates Problem Status W/U Status Risk Notes Problem Atherosclerotic heart disease of [place] coronary artery without angina pectoris ([id number]) Arteriosclerotic coronary artery disease (I25.10) Active confirmed Problem Body mass index 30.00 to 34.99 ([id number]) Body mass index [BMI] 32.0-32.9, adult (Z68.32) Active confirmed Vital Signs Weight 229.4 lbs 02/08/2025 Blood pressure systolic 120 mm Hg 02/09/20 25 Blood pressure diastolic 82 mm Hg 025 Heart Rate 88 /min 02/08/2025 Height 70 in 02/08/2025 BMI 32.91 kg/m2 02/08/2025 Encounters Encounter Location Date Provider Diagnosis [facility] [address], [place] [phone] 02/08/2025 Imani Victoria Essential hypertensi on I10 ; Depression with anxiety F41.8 ; Arteriosclerotic coronary artery disease I25.10 ; Tinea cruris B35.6 ; Type 2 diabetes mellitus without complication, without long-term current use of insulin E11.9 ; Hyperlipidemia, unspecified hyperlipidemia type E78.5 ; Cardiomyopathy of undetermined type I42.9 and Body mass index [BMI] 32.0-32.9, adult Z68.32 Assessments Encounter Date Diagnosis (ICD Code) Assessment Notes Treatment Notes Treatment Clinical Notes Section Notes 02/08/2025 Essential hypertension (ICD-10 - I10) 02/08/2025 Depression with anxiety (ICD-10 - F41.8) 02/08/2025 Arteriosclerotic coronary artery disease (ICD-10 - I25.10) 02/08/2025 Tinea cruris (ICD-10 - B35.6) 02/08/2025 Type 2 diabetes mellitus without complication, without long-term current use of insulin (ICD-10 - E11.9) 02/08/2025 Hyperlipidemia, unspecified hyperlipidemia type (ICD-10 - E78.5) 02/08/2025 Cardiomyopathy of undetermined type (ICD-10 - I42.9) 02/08/2025 Body mass index [BMI] 32.0-32.9, adult (ICD-10 - Z68.32) Plan Of Treatment Medication Medication Name Sig Start Date Stop Date Notes Nystatin-Triamcinolone 000303-2.1 UNIT/GM 1 application Externally Twice a day 02/08/2025 Referrals Referral Date Details 02/08/2025 02/08/2025, needs fo llow-up CAD Next Appt Details Follow Up: 3 Months, Reason: Provider Name:Imani Melgoza er, 09/20/2025 02:15:00 PM, [address], [address], [place], [phone], Progress Notes * TD BROOKE WDOB:[birth year] (74 yo M)Acc No.[id number]:02/08/2025 Progress Notes Patient: TD OLIVO Provider: Imani Victoria M.D. :1950 A ge:74 Y S ex:Male Date:02/08/2025 Address:[place] [address], [place], [id number] Subjective: * Chief Complaints: * 1 . 1 month ckup. * HPI: C ardiology: The patient is here for a check up on Hypertension. Pt states he stopped the Nifedipine and now his BP is 140/90 this morning. Pt states his readings at home are running high. Denies : Chest Pain b ut some nonexertional left arm pain.?Denies : Short of Breath. D enies : Dizziness. D enies : Palpitations. * ROS: D ERMATOLOGY: no R angela. [...] tab(s) orally once a day , Taking Crestor 5 MG Tablet 1 tab(s) orally once a day , Taking Fluticasone Propionate 50 MCG/ACT Suspension 2 spray(s) intranasally once a day , Taking Levothyroxine Sodium 75 MCG Tablet 1 tab(s) orally once a day , Taking Losartan Potassium 50 MG Tablet 1/2 orally once a day , Taking Nystatin- Triamcinolone 180698-5.1 UNIT/GM Cream 1 rajat applied topically 2 times a day , Taking metFORMIN HCl 500 MG Tablet 1 tablet with a meal Orally Once a day , Taking Potassium Chloride ER 8 MEQ Tablet Extended Release TAKE 1 TABLET BY MOUTH ONCE DAILY , Taking Vitamin B-12 1000 MCG Tablet 1 tablet Orally Once a day , Medication List reviewed and reconciled with the patient * Allergies: N .K.D.A. Objective: * Vitals: W t:229.4, Temp:98.5, BP:120/82, HR:88, O2 Sat:98% on RA, Nurse:ROEL, Ht: 70, BMI:32.91. * Examination: G eneral Examination: General Appearance: N AD. H EENT: u nremarkable.?Oral cavity: n o lesions, mucosa moist and WNL, no erythema. N rosemarie: s upple, no lymphadenopathy. C hest: n ormal shape and expansion. H eart: R SR, 108/76. L ungs: clear to auscultation. A bdomen: soft and nontender, no organomegaly or masses. N eurologic Exam: I ntact, gait normal. S kin: n ormal, no rash. P eripheral pulses:?normal . B ack: normal. E xtremities: t race l eg edema. G enitalia: n ot examined. Assessment: * Assessment: 1. E ssential hypertension - I10 (Primary) 2 . D epression with anxiety - F41.8 3 . A rteriosclerotic coronary artery disease - I25.10 4 .?Tinea cruris - B35.6 5 . T ype 2 diabetes mellitus without complication, without long-term current use of insulin - E11.9 6 . H yperlipidemia, unspecified hyperlipidemia type - E78.5 7 . C ardiomyopathy of undetermined type - I42.9? 8. B desiree mass index [BMI] 32.0-32.9, adult - Z68.32 Plan: * Treatment: 2. A rteriosclerotic coronary artery disease Referral To: Reason:needs follow-up CAD * Procedure Codes: G 2211 Complex e/m visit add on, G8752 MOST RECENT SYSTOLIC BP < 140MM HG, G8754 MOST RECENT DIASTOLIC BP < 90MM HG * Follow Up: 3 Months * Images: Billing Information: * Visit Code: 50546 Office Visit, Est Pt., Level 3. * Procedure Codes: G2211 Complex e/m visit add on. G8752 MOST RECENT SYSTOLIC BP < 140MM HG. G8754 MOST RECENT DIASTOLIC BP < 90MM HG. * Electronic signature of Imani Victoria MD on 08/19/2025 at 08:50 AM EDT Sign off status: Pending * Provider: Imani Victoria M.D. Date: 0 02/08/2025 Generated for Yong cortez/Jennifer/Faizanitting on: 1 08:50 AM EDT History and Physical Notes * HPI (History of Present Illness) Category Sub-Category Detail Notes Category Not es Cardiology Short of Breath Chest Pain but some nonexertion al left arm pain Palpitations Dizziness Examination Category Sub-Category Detail Notes Category Not es General Examination HEENT: unremarkable Heart: RSR, 108/76 Lungs: clear to auscultatio n Abdomen: soft and nontender, no organomegaly or masses Extremities: trace leg edema General Appearance: NAD Skin: normal, no rash Neurologic Exam: Intact, gait normal Neck: supple, no lymphaden opathy Oral cavity: no lesions, mucosa m oist and WNL, no erythema Peripheral pulses: normal Back: normal Genitalia: not examined Chest: normal shape and exp ansion Consultation Request Notes Referral Date Referring Provider Referred Provider Not es 02/08/2025 Imani Victoria , needs foll ow-up CAD
--- OUTSIDE RECORDS SUMMARY | 2025-02-19 06:15 | XMS_ITS ---
Author Organization [facility] Address [address] [facility] [address] [facility] [address] [place] [phone] Care Team Providers Care Manager Of Operations Name Role Phone Imani Victoria Primary Care Provider REASON FOR VISIT 4 Month Check Up Encounters Encounter Location Date Provider Diagnosis [facility] [address] [facility] [address] [place] [phone] 02/19/2025 Imani Victoria Plan Of Treatment Next Appt Details Provider Name:Imani Melgoza er, 09/20/2025 02:15:00 PM, [address], [address], [place], [phone], Progress Notes * ALESSIO BROOKE WDOB:[birth year] (74 yo M)Acc No.[id number]:02/19/2025 Progress Notes Patient: ALESSIO OLIVO Provider: Imani Victoria M.D. :1950 A ge:74 Y S ex:Male Date:02/19/2025 Address: [id number] Subjective: * Chief Complaints: * 1 . 4 Month Check Up. * Medical History: Objective: * Vitals: Assessment: Plan: * Treatment: * Images: Billing Information: * Visit Code: * Procedure Codes: * Electronic signature of Imani Victoria MD on 08/19/2025 at 08:51 AM EDT Sign off status: Pending * Provider: Imani Victoria M.D. Date: 0 02/19/2025 Generated for Yong cortez/Jennifer/Luis Antonio on: 1 08:51 AM EDT
--- OUTSIDE RECORDS SUMMARY | 2025-05-10 09:00 | XMS_ITS ---
Author Organization [facility] Address [address] [facility] [address] [facility] [place] [address] [place] [phone] Care Team Providers Care Cokeman Name Role Phone Imani Victoria Primary Care Provider REASON FOR VISIT 3 months Encounters Encounter Location Date Provider Diagnosis [facility] [address] [facility] [place] [address] [place] [phone] 05/10/2025 Imani Victoria Plan Of Treatment Next Appt Details Provider Name:Imani Melgoza er, 09/20/2025 02:15:00 PM, [address] [facility] [address] [facility] [place], [address], [place], [phone], Progress Notes * ALESSIO HOLT WDOB:[birth year] (74 yo M)Acc No.[id number]:05/10/2025 Progress Notes Patient: ALESSIO OLIVO Provider: Imani Victoria M.D. :1950 A ge:74 Y S ex:Male Date:05/10/2025 Address: [id number] Subjective: * Chief Complaints: * 1 . 3 months. * Medical History: Objective: * Vitals: Assessment: Plan: * Treatment: * Images: Billing Information: * Visit Code: * Procedure Codes: * Electronic signature of Imani Victoria MD on 08/19/2025 at 08:51 AM EDT Sign off status: Pending * Provider: Imani Victoria M.D. Date: 0 05/10/2025 Generated for Yong cortez/Jennifer/Luis Antonio on: 1 08:51 AM EDT
--- OUTSIDE RECORDS SUMMARY | 2025-08-08 13:07 | XMS_ITS | Encounter Summary ---
[facility] Address [address] [place] [address] Care Team Providers Care Regional Forester Name Role Phone Osmany Victoria MD Primary Care Provider [phone] Reason for Visit * Reason Comments Sore Throat Fatigue, congestion; started Saturday night Encounter Details Date Type Department Care Team (Late st Contact Info) Description 08/08/2025 1:07 PM EDT - 08/08/2025 1:43 PM EDT Hospital Encounter [facility] - [address] [place] [id number] Josemanuel Smith III, DO [address] [place] [address] Acute non-recurrent pansinusitis (Primary Dx) Discharge Disposition: Home or Self Care Social History Tobacco Use Types Packs/Day Years Used Date Smoking Tobacco: Never Passive Smoke Exposure: Never Smokeless Tobacco: Never Tobacco Cessation:Counseling Given: No Alcohol Use Standard Drinks/Week Comments Not Currently 0 (1 standard drink = 0.6 oz pur e alcohol) Abuse Screen Answer Date Recorded Feels Unsafe at Home or Work/School no 11/25/2024 Feels Threatened by Someone no 11/05 Does Anyone Try to Keep You From Having Contact with Others or Doing Things Outside Your Home? no 11/25/2024 Physical Signs of Abuse Present no 11/25/2024 Housing Stability Answer Date Recorded Current Living Arrangements apartment 11/05 Potentially Unsafe Housing Conditions Not on del e 11/25/2024 Disabilities Answer Date Recorded Difficulty Concentrating, Remembering or Making Decisions no 11/25/2024 Difficulty Managing Errands Independently no 11/25/2024 Education Answer Date Recorded Help with school or training? Not on file Preferred Language New Zealander 11/18/2024 Sex and Gender Information Value Date Recorded Sex Assigned at Not on file Legal Sex Male 3:06 PM EST Gender Identity Not on file Sexual Orientation Not on file documented as of this encounter Last Filed Vital Signs Vital Sign Reading Time Taken Comments Blood Pressure 127/89 08/08/2025 12:28 PM EDT Pulse 90 08/08/2025 12:28 PM EDT Temperature 37.1 C (98.7 F) 08/08/2025 12:28 PM EDT Respiratory Rate 16 08/08/2025 12:28 PM EDT Oxygen Saturation 95% 08/08/2025 12:28 PM EDT Inhaled Oxygen Concentration - - Weight 103 kg (226 lb) 08/08/2025 12:28 PM EDT Height 177.8 cm (5' 10 ) 08/08/2025 12:28 PM EDT Body Mass Index 32.43 08/08/2025 12:28 PM EDT documented in this encounter Discharge Instructions * Discharge Instructions* Josemanuel Smith III, DO - 08/08/2025 1:39 PM EDT You may take Tylenol as directed on the packaging if needed for pain or fevers, headache or bodyaches. Rest, drink plenty of clear liquids such as water and juices to thin your secretions and aid your recovery. You have tested negative for strep, COVID and flu at this visit. * Attachments The following attachments cannot be sent through Care Everywhere. * Sinus Infection Adult [id number]-[id number] (New Zealander) * How to Perform a Sinus Rinse [id number]-fa-Uixz ([place] Zealander) documented in this encounter Medications at Time of Discharge aspirin 81 MG EC tablet Take 1 tablet by mouth Daily. docusate sodium 100 MG capsule Take 1 capsule by mouth 2 (Two) Times a Day As Needed for Constipation. 30 capsule 11/26/2024 9:37 AM EST 11/26/2024 fluticasone (FLONASE) 50 MCG/ACT nasal spray Administer 2 sprays into the nostril(s) as directed by provider Daily As Needed for Rhinitis or Allergies. levothyroxine (SYNTHROID, LEVOTHROID) 75 MCG tablet Take 1 tablet by mouth Daily. loratadine-pseudoe phedrine (Claritin-D 12 Hour) 5-120 MG per 12 hr tabletIndications: Acute non-recurrent pansinusitis Take 1 tablet by mouth 2 (Two) Times a Day for 10 days. 20 tablet 08/08/2025 losartan (COZAAR) 50 MG tablet Take 1 tablet by mouth Daily. 05/30/2023 metFORMIN (GLUCOPHAGE) 500 MG tablet Take 1 tablet by mouth Daily With Breakfast. 11/14/2024 metoprolol succinate XL (TOPROL-XL) 25 MG 24 hr tablet Take 1 tablet by mouth Daily. 06/13/2023 nystatin-triamcino lone (MYCOLOG II) 235209-6.1 UNIT/GM-% cream Apply 1 Application topically to the appropriate area as directed 2 (Two) Times a Day As Needed (skin irritation or rash). potassium chloride (KLOR-CON) 8 MEQ CR tablet Take 1 tablet by mouth 2 (Two) Times a Day. rosuvastatin (CRESTOR) 10 MG tablet Take 1 tablet by mouth Daily. amoxicillin (AMOXIL) 875 MG tabletIndications: Acute non-recurrent pansinusitis Take 1 tablet by mouth 2 (Two) Times a Day for 10 days. 20 tablet 08/08/2025 documented as of this encounter ED Notes * Josemanuel Smith III, DO - 08/08/2025 1:26 PM EDT Subjective Sore Throat Associated symptoms: postnasal drip Associated symptoms: no cough, no ear discharge, no ear pain (Does have congestion in his ears.) and no shortness of breath Td Sam Holt is a 74 y.o. male who presents for complaint of sore throat, fatigue, andcongestion for the past 2 days. Patient states he took Claritin-D this morning with partial relief but is no more. Review of Systems Constitutional: Positive for fatigue. HENT: Positive for congestion, postnasal drip and sore throat. Negative for ear discharge and ear pain (Does have congestion in his ears.). Respiratory: Negative for cough and shortness of breath. Past Medical History: Diagnosis Date Disease of thyroid gland Hypertension Left inguinal hernia Pre-diabetes Sleep apnea cpap nightly No Known Allergies Past Surgical History: Procedure Laterality Date CHOLECYSTECTOMY COLONOSCOPY INGUINAL HERNIA REPAIR Left 11/25/2024 Procedure: ROBOTIC LEFT INGUINAL HERNIA REPAIR WITH MESH; Surgeon: Keenan Nance MD; Location: [facility]; Service: Robotics - DaVinci; Laterality: Left; TONSILLECTOMY History reviewed. No pertinent family history. Social History Socioeconomic History Marital status: Tobacco Use Smoking status: Never Passive exposure: Never Smokeless tobacco: Never Vaping Use Vaping status: Never Used Substance and Sexual Activity Alcohol use: Not Currently Drug use: Never Sexual activity: Defer Objective BP 127/89 (BP Location: Left arm, Patient Position: Sitting) Pulse 90 Temp 98.7 ??F (37.1 ??C) (Temporal) Resp 16 Ht 177.8 cm (70 ) Wt 103 kg (226 lb) SpO2 95% BMI 32.43 kg/m?? Physical Exam Vitals and nursing note reviewed. Constitutional: General: He is not in acute distress. Appearance: He is well-developed. He is not ill-appearing, toxic-appearing or diaphoretic. HENT: Head: Normocephalic and atraumatic. Right Ear: A middle ear effusion is present. Tympanic membrane is not erythematous. Left Ear: A middle ear effusion is present. Tympanic membrane is not erythematous. Nose: Congestion (With inflammation and yellow mucus drainage) present. Mouth/Throat: Mouth: Mucous membranes are moist. Pharynx: Posterior oropharyngeal erythema (Mild erythema with moderate postnasal drainage) present. Eyes: Conjunctiva/sclera: Conjunctivae normal. Cardiovascular: Rate and Rhythm: Normal rate and regular rhythm. Heart sounds: Normal heart sounds. Pulmonary: Effort: Pulmonary effort is normal. No respiratory distress. Breath sounds: Normal breath sounds. No wheezing, rhonchi or rales. Abdominal: General: Bowel sounds are normal. Musculoskeletal: Cervical back: Normal range of motion and neck supple. Lymphadenopathy: Cervical: Cervical adenopathy (Shotty) present. Skin: General: Skin is warm and dry. Neurological: General: No focal deficit present. Mental Status: He is alert and oriented to person, place, and time. Psychiatric: Mood and Affect: Mood normal. Behavior: Behavior normal. Procedures ED Course Results for orders placed or performed during the hospital encounter of 08/08/25 POC Rapid Strep A Collection Time: 08/08/25 1:07 PM Specimen: Swab Result Value Ref Range Rapid Strep A Screen Negative Internal Control Passed Lot Number [id number] Expiration Date 04/27/2026 Covid-19 + Flu A&B AG, Veritor Collection Time: 08/08/25 1:08 PM Specimen: Swab Result Value Ref Range COVID19 Not Detected Influenza A Antigen DIPAK Not Detected Influenza B Antigen DIPAK Not Detected Internal Control Passed Lot Number [id number] Expiration Date 01/06/2026 Diagnoses and all orders for this visit: 1. Acute non-recurrent pansinusitis (Primary) - amoxicillin (AMOXIL) 875 MG tablet; Take 1 tablet by mouth 2 (Two) Times a Day for 10 days. Dispense: 20 tablet; Refill: 0 - loratadine-pseudoephedrine (Claritin-D 12 Hour) 5-120 MG per 12 hr tablet; Take 1 tablet by mouth2 (Two) Times a Day for 10 days. Dispense: 20 tablet; Refill: 0 Other orders - POC Rapid Strep A; Standing - Covid-19 + Flu A&B AG, Veritor; Standing - POC Rapid Strep A - Covid-19 + Flu A&B AG, Veritor Medical Decision Making Patient was tested for strep, COVID and flu. All test were negative. Patient was diagnosed with acute sinusitis. Patient was prescribed amoxicillin and Claritin- D. He already has Flonase at home and was encouraged to use it. He was given appropriate home-going and follow-up instructions. Amount and/or Complexity of Data Reviewed Labs: ordered. Final diagnoses: Acute non-recurrent pansinusitis Josemanuel Smith III, DO 08/08/25 1339 documented in this encounter Plan of Treatment Not on file documented as of this encounter Procedures Procedure Name Priority Date/Time Associated Diagnosis Comments COVID-19 + FLU A&B AG, VERITOR STAT 08/08/2025 1:08 PM EDT Acute non-recurrent pansinusitis POCT RAPID STREP A STAT 08/08/2025 1: 07 PM EDT Acute non-recurrent pansinusitis documented in this encounter Results * Covid-19 + Flu A&B AG, Veritor (08/08/2025 1:08 PM EDT) COVID19 Not Detected Influenza A Antigen DIPAK Not Detected Influenza B Antigen DIPAK Not Detected Internal Control Passed Lot Number [id number] Expiration Date 01/06/2026 Swab 08/08/2025 1:08 PM EDT us Josemanuel Smith III, DO POINT OF CARE TEST ORDERABL ES Final Result * POC Rapid Strep A (08/08/2025 1:07 PM EDT) Pathologist [facility] Rapid Strep A Screen Negative [facility] Internal Control Passed [facility] Lot Number [id number] [facility] Expiration Date 04/27/2026 [facility] Swab 08/08/2025 1:07 PM EDT us Josemanuel Smith III, DO POINT OF CARE TEST ORDERABL ES Final Result [facility]
[address] [place] [address], documented in this encounter Visit Diagnoses Diagnosis Acute non-recurrent pansinusitis- Primary documented in this encounter Additional Health Concerns Infection Onset Date Last Indicated Resolved Time COVID (rule out) 08/08/2025 08/08/2025 08/08/2025 1:08 PM EDT documented as of this encounter Care Teams Regional Forester Relationship Specialty Start Date End Date Osmany Victoria MD [address] [place] [address] PCP - General Family Medicine 11/18/24 documented as of this encounter
--- OUTSIDE RECORDS SUMMARY | 2025-08-18 12:45 | XMS_ITS ---
[facility] Address [address] [place] [id number] Care Team Providers Care Program Trainer Name Role Phone Imani Victoria Primary Care Provider [phone] Aliya Owens Unavailable [phone] Allergies No Known Allergies Results Component Value Reference Range Notes CBC Fingerstick (in house) ( Not yet reviewed by provider) Interpretation: Performing Lab: Notes/Report: wbc 8.7 3.5 - 10 lym 24.6 15 - 50 mid 7.2 2 - 15 gran 68.2 35 - 80 rbc 4.94 3.5 - 5.5 hgb 15.0 11.5 - 16.5 hct 44.7 35 - 55 mcv 90.5 75 - 100 mch 30.3 25 - 35 mchc 33.5 31 - 38 plat 213 100 - 400 REASON FOR VISIT check up Medications Medication SIG (Take, Route, Frequency, Duration) Notes Start Date End Date Status Levothyroxine Sodium 75 MCG TAKE 1 TABLE T BY MOUTH ONCE DAILY; Duration: 90 Active Nystatin-Triamcinolone 050842-9.1 UNIT/GM 1 application Externally Twice a day 02/08/2025 Active Fluticasone Propionate 50 MCG/ACT 2 spray(s) intranasally once a day Active Vitamin B-12 1000 MCG 1 tablet Orally On ce a day; Duration: 30 day(s) 01/11/2025 Active Nystatin-Triamcinolone 625846-6.1 UNIT/GM 1 rajat applied topically 2 times a day Active Losartan Potassium 50 MG 1/2 orally once a day; Duration: 30 day(s) Active Crestor 5 MG 1 tab(s) orally once a day; Duration: 30 day(s) Active Benzonatate 200 MG 1 capsule as needed Orally Three times a day, prn 08/18/2025 Active Metoprolol Succinate ER 25 MG 1 tablet Orally Once a day Active Aspirin Low Dose 81 MG 1 tab(s) orally o nce a day 01/09/2017 Active Potassium Chloride ER 8 MEQ 1 tab(s) Ora lly Once a day; Duration: 90 days Active metFORMIN HCl 500 MG 1 tablet with a rodney l Orally Once a day; Duration: 30 days Active Vital Signs Weight 226.4 lbs 08/18/2025 Blood pressure systolic 122 mm Hg 08/18/20 25 Blood pressure diastolic 60 mm Hg 025 Heart Rate 119 /min 08/18/2025 Height 70 in 08/18/2025 BMI 32.48 kg/m2 08/18/2025 Encounters Encounter Location Date Provider Diagnosis [facility] [address] [place] [id number] 08/18/2025 Aliya Owens Acute URI J06.9 Assessments Encounter Date Diagnosis (ICD Code) Assessment Notes Treatment Notes Treatment Clinical Notes Section Notes 08/18/2025 Acute URI (ICD-10 - J06.9) Plan Of Treatment Medication Medication Name Sig Start Date Stop Date Notes Benzonatate 200 MG 1 capsule as needed Orally Three times a day, prn 08/18/2025 Pending Test Test Name Order Date CBC Fingerstick (in house) 08/18/2025 Next Appt Details Provider Name:Imani GanDanny Rhona er, 09/20/2025 02:15:00 PM, [address] [facility] [address] [facility], [address], [place], [id number], Progress Notes * TD BROOKE WDOB:[birth year] (74 yo M)Acc No.[id number]:08/18/2025 Progress Notes Patient: TD OLIVO Provider: CHEO Hernandez :1950 A ge:74 Y S ex:Male Date:08/18/2025 Address:[place] [address], [id number] Pcp:Imani Victoria Subjective: * Chief Complaints: * 1 . Check up. * HPI: H PI: Patient is here today for antonio meza. Pt is not fasting. Pt states he needs refills on meds . E NT/respiratory: Pt states these symptoms started 2 weeks ago. c/o cough d ry without any sputum production. c/o chest congestion. Denies : sore throat. D enies : nasal congestion. D enies : Fever. D enies : ear pain. D enies : Chest Pain. D enies : Short of Breath. D enies : headache. D enies : dizziness. D enies : body aches. * ROS: D ERMATOLOGY: no R angela. [...] 1/2 orally once a day , Taking Nystatin-Triamcinolone 605006-0.1 UNIT/GM Cream 1 rajat applied topically 2 times a day , Taking Vitamin B-12 1000 MCG Tablet 1 tablet Orally Once a day , Taking Nystatin-Triamcinolone 093994-5.1 UNIT/GM Cream 1 application Externally Twice a day , Taking Levothyroxine Sodium 75 MCG Tablet TAKE 1 TABLET BY MOUTH ONCE DAILY , Taking Fluticasone Propionate 50 MCG/ACT Suspension 2 spray(s) intranasally once a day , Taking Potassium Chloride ER 8 MEQ Tablet Extended Release 1 tab(s) Orally Once a day , Taking metFORMIN HCl 500 MG Tablet 1 tablet with a meal Orally Once a day , Medication List reviewed and reconciled with the patient * Allergies: N .K.D.A. Objective: * Vitals: W t: 226.4, Temp: 98.4, BP: 122/60, HR: 119, Nurse: quan, Ht: 70, BMI:32.48. Assessment: * Assessment: 1. Julee perry URI - J06.9 (Primary) Plan: * Treatment: * Labs: * L ab: CBC Fingerstick (in house) (Collection Date & Time - 08/18/2025) Value Reference Range w bc 8.7 3.5 - 10 * l ym 24.6 15 - 50 * m id 7.2 2 - 15 * g ran 68.2 35 - 80 * r bc 4.94 3.5 - 5.5 * h gb 15.0 11.5 - 16.5 * h ct 44.7 35 - 55 * m cv 90.5 75 - 100 * m ch 30.3 25 - 35 * m chc 33.5 31 - 38 * p lat 213 100 - 400 * Alyssa Garcia 08/18/2025 04:56:53 PM EDT > Provider reviewed results while patient in office. * Procedure Codes: 3 6416 CAPILLARY BLOOD DRAW, 02812 CBC WITH AUTO DIFF * Images: Billing Information: * Visit Code: * Procedure Codes: 00007 CAPILLARY BLOOD DRAW. 54998 CBC WITH AUTO DIFF. * Electronic signature of CHEO Braswell on 08/19/2025 at 08:51 AM EDT Sign off status: Pending * Provider: CHEO Hernandez Date: Generated for Yong cortez/Jennifer/Luis Antonio on: 08:51 AM EDT History and Physical Notes * HPI (History of Present Illness) Category Sub-Category Detail Notes Category Not es ENT/respiratory sore throat ear pain Short of Breath Chest Pain cough dry without any sput um production Fever headache chest congestion nasal congestion dizziness body aches HPI Patient is here today for checku p. Pt is not fasting. Pt states he needs refills on meds
--- NOTE | 2025-08-19 08:45 | CT_ITS ---
FINAL REPORT TECHNIQUE: Axial imaging of the chest is obtained after the administration of contrast. 3-D MIP reformatted images were also obtained and reviewed per PE protocol. CLINICAL HISTORY: dilated ascending aorta COMPARISON: None FINDINGS: Ascending aorta measures 41 mm. No evidence of aortic dissection. The heart is normal in size. There is no evidence of central pulmonary embolism. Heart size is normal. No thoracic lymphadenopathy. The lungs are clear. No suspicious mass or nodule identified. No consolidation. There is no pleural or pericardial effusion. Limited evaluation of the upper abdomen is without acute abnormality. No acute osseous abnormality. IMPRESSION: 41 mm ascending aortic aneurysm. No acute abnormality identified. Reviewed, Interpreted and Dictated by Bonny Mancini MD Transcribed by Conchis Muniz Authenticated and [facility]
--- OUTSIDE RECORDS SUMMARY | 2025-08-19 08:50 | XMS_ITS | Referral Summary ---
Author Organization [employer] ([place], [place], [place], [place]) Address [address] [place] [address] Care Team Providers Care Narrow Gauge Engineer Name Role Phone Unavailable Primary Care Provider Unavailabl e Encounters Date Type Department Care Team Description 07/30/2025 Outside Orders [facility] [address] [place] [address] [address] Coreen Munguia MD Change in bowel habits (Primary Dx) from Last 3 Months Social History Tobacco Use Types Packs/Day Years Used Date Smoking Tobacco: Never Assessed Sex and Gender Information Value Date Recorded Sex Assigned at Not on file Legal Sex Male 1:56 PM CDT Gender Identity Not on file Sexual Orientation Not on file Plan of Treatment Not on file Insurance MEDICARE PART A B
--- OUTSIDE RECORDS SUMMARY | 2025-08-19 08:50 | XMS_ITS | Clinical Summary ---
Author Organization [facility] ([place], [place], [place], [place]) Address [address] [place] [address] Care Team Providers Care Trim Sawyer Name Role Phone Unavailable Primary Care Provider Unavailabl e Encounters Date Type Department Care Team Description 07/30/2025 Outside Orders [facility]enterology [address] [place] [address] [address] Coreen Munguia MD Change in bowel habits (Primary Dx) from Last 3 Months Social History Tobacco Use Types Packs/Day Years Used Date Smoking Tobacco: Never Assessed Sex and Gender Information Value Date Recorded Sex Assigned at Not on file Legal Sex Male 1:56 PM CDT Gender Identity Not on file Sexual Orientation Not on file Plan of Treatment Health Maintenance Due Date Last Done Comments CT Colonography 1950 Colonoscopy 1950 Colorectal Cancer Screening 1950 FOBT/FIT 1951 Fit-DNA (Cologuard) 1950 Sigmoidoscopy 1950 Depression Screening (12+) 1963 Tobacco Cessation Counseling and Screening (12+) 10/03 Hepatitis C Screening 1969 DTAP/TDAP/TD VACCINES (1 - Tdap) 1970 Pneumococcal 50+ years (1 of 1 - PCV) 2001 Shingles Vaccine (Zoster) (1 of 2) 2001 Falls Risk Screening 11/04/2024 COVID-19 VACCINE (1 - season) 2025 Influenza Vaccine (#1) 2025 Medicare IPPE (Welcome to Medicare) [id number] 07/05/2025 Respiratory Syncytial Virus (RSV) Adult or (1 - 1-dose 75+ series) 2026 Insurance MEDICARE PART A B
--- OUTSIDE RECORDS SUMMARY | 2025-08-19 08:51 | XMS_ITS | Encounter Summary ---
Author Organization [facility] Address [address] [place] [address] Care Team Providers Care Fire Protection Engineering Technician Name Role Phone Osmany [place] MD Primary Care Provider [phone] Encounter Details Date Type Department Care Team (Latest Contact Info) Description 08/08/2025 Travel Social History Tobacco Use Types Packs/Day Years Used Date Smoking Tobacco: Never Passive Smoke Exposure: Never Smokeless Tobacco: Never Alcohol Use Standard Drinks/Week Comments Not Currently [...] or training? Not on file Preferred Language Monegasque 11/18/2024 Sex and Gender Information Value Date Recorded Sex Assigned at Not on file Legal Sex Male 3:06 PM EST Gender Identity Not on file Sexual Orientation Not on file documented as of this encounter Plan of Treatment Not on file documented as of this encounter Visit Diagnoses Not on filedocumented in this encounter Additional Health Concerns Infection Onset Date Last Indicated Resolved Time COVID (rule out) 08/08/2025 08/08/202508/08/2025 1:08 PM EDT documented as of this encounter Care Teams Fire Protection Engineering Technician Relationship Specialty Start Date End Date Osmany Victoria MD [address] [facility] [address] [facility] [address] [place] [address] PCP - General Family Medicine 11/18/24 documented as of this encounter
--- OUTSIDE RECORDS SUMMARY | 2025-08-19 08:51 | XMS_ITS | Clinical Summary ---
[facility] Address [address] [place] [address] Care Team Providers Care Gamemaster Name Role Phone Osmany Victoria MD Primary Care Provider [phone] Allergies No known active allergies Medications losartan (COZAAR) 50 MG tablet Take 1 tablet by mouth Daily. 05/30/20 23 Active metoprolol succinate XL (TOPROL-XL) 25 MG 24 hr tablet Take 1 tablet by mouth Daily. 06/13/20 23 Active levothyroxine (SYNTHROID, LEVOTHROID) 75 MCG tablet Take 1 tablet by mouth Daily. Active potassium chloride (KLOR-CON) 8 MEQ CR tablet Take 1 tablet by mouth 2 (Two) Times a Day. Active rosuvastatin (CRESTOR) 10 MG tablet Take 1 tablet by mouth Daily. Active fluticasone (FLONASE) 50 MCG/ACT nasal spray Administer 2 sprays into the nostril(s) as directed by provider Daily As Needed for Rhinitis or Allergies. Active nystatin-triamci nolone (MYCOLOG II) 354950-0.1 UNIT/GM-% cream Apply 1 Application topically to the appropriate area as directed 2 (Two) Times a Day As Needed (skin irritation or rash). Active metFORMIN (GLUCOPHAGE) 500 MG tablet Take 1 tablet by mouth Daily With Breakfast. 11/14/19 25 Active docusate sodium 100 MG capsule Take 1 capsule by mouth 2 (Two) Times a Day As Needed for Constipation. 30 capsule 5 9:37 AM EST 11/26/19 25 Active aspirin 81 MG EC tablet Take 1 tablet by mouth Daily. Active loratadine-pseud oephedrine (Claritin-D 12 Hour) 5-120 MG per 12 hr tabletIndication s:Acute non-recurrent pansinusitis Take 1 tablet by mouth 2 (Two) Times a Day for 10 days. 20 tablet 08/08/20 25 Active NIFEdipine XL (PROCARDIA XL) 30 MG 24 hr tablet Take 1 tablet by mouth Daily. 025 Discontinu ed(Histori fawn Med - Therapy completed) amoxicillin (AMOXIL) 875 MG tabletIndication s:Acute non-recurrent pansinusitis Take 1 tablet by mouth 2 (Two) Times a Day for 10 days. 20 tablet 08/08/20 25 025 Active Problems Problem Noted Date Diagnosed Date Left inguinal hernia 11/25/2024 Encounters Date Type Department Care Team Description 08/08/2025 1:07 PM EDT - 08/08/2025 1:43 PM EDT Hospital Encounter [facility] [address] [facility] [address] [place] [address] Josemanuel Smith III, DO Acute non-recurrent pansinusitis (Primary Dx) Discharge Disposition: Home or Self Care 08/08/2025 Travel from Last 3 Months Immunizations Immunization Administration Dates Next Due Fluzone High-Dose 65+yrs 07/25/2022,07/31/2021 Pneumococcal Polysaccharide (PPSV23) 10/27/2018 Social History Tobacco Use Types Packs/Day Years [...] or training? Not on file Preferred Language [place] Citizen 11/18/2024 Sex and Gender Information Value Date Recorded Sex Assigned at Not on file Legal Sex Male 3:06 PM EST Gender Identity Not on file Sexual Orientation Not on file Last Filed Vital Signs Vital Sign Reading [...] Mass Index 32.43 08/08/2025 12:28 PM EDT Plan of Treatment Health Maintenance Due Date Last Done Comments TDAP/TD VACCINES (1 - Tdap) 1970 COLON CANCER SCREENING 5 YEA R SIGMOIDOSCOPY [address] COLONOGRAPHY 1996 FECAL OCCULT BLOOD TEST 1996 FIT Testing (1 year) 1996 ZOSTER VACCINE (1 of 2) 2001 AAA SCREEN ONCE 2016 Pneumococcal Vaccine 50+ (2 of 2 - PCV) 10/27/2019 10/27/2018 ANNUAL PHYSICAL 11/17/2024 HEPATITIS C SCREENING 11/17/2024 INFLUENZA VACCINE 06/04/2025 07/25/2022, 07/31/2021 COVID-19 Vaccine ( season) 2025 10/11/2021, 02/15/2021, 01/18/2021 COLOGUARD 11/20/2027 11/20/2024, 05/11/2020 COLORECTAL CANCER SCREENING 11/20/2027 Medical Devices Implanted Type Area Cable Respooler Device Identifier Shelf Expiration Date Model / Serial / Lot Dev Contrl Tiss Stratafix Spiral Pls Pds Sh 2/0 30cm - [id number] Implanted:Qt y: 1 on 11/25/2024 by Keenan Nance MD at [facility] Implant Left: Abdomen [employer] J AND J [id number] 11/03/2025 [id number] / / [id number] Mesh Shona Amira 3dmax 4x6in Lg Lt - [id number] Implanted:Qt y: 1 on 11/25/2024 by Keenan Nance MD at [facility] Implant Left: Abdomen [employer] [id number] 07/01/2029 [id number] / / [id number] Kt Seal Hemos Abs Floseal Matrx 1.5/Fast/Pre p 5000/Iu 10ml - [id number] Implanted:Qt y: 1 on 11/25/2024 by Keenan Nance MD at [facility] Implant Left: Abdomen [facility] [id number] 03/03/2026 [id number] / / [id number] Procedures Procedure Name Priority Date/Time Associated Diagnosis Comments COVID-19 + FLU A&B AG, VERITOR STAT 08/08/2025 1:08 PM EDT Acute non-recurrent pansinusitis POCT RAPID STREP A STAT 08/08/2025 1: 07 PM EDT Acute non-recurrent pansinusitis from Last 3 Months Results * Covid-19 + Flu A&B AG, Veritor (08/08/2025 1:08 PM EDT) Pathologist [facility] COVID19 Not Detected Influenza A Antigen DIPAK Not Detected Influenza B Antigen DIPAK Not Detected Internal Control Passed Lot Number [id number] Expiration Date 01/06/2026 Swab 08/08/2025 1:08 PM EDT us Josemanuel Smith III, DO POINT OF CARE TEST ORDERABL ES Final Result * POC Rapid Strep A (08/08/2025 1:07 PM EDT) Pathologist [facility] Rapid Strep A Screen Negative [facility] Internal Control Passed [facility] Lot Number [id number] PSYCHIATRIC LABORATORY Expiration Date 04/27/2026 [facility] Swab 08/08/2025 1:07 PM EDT us Josemanuel Smith III, DO POINT OF CARE TEST ORDERABL ES Final Result [facility]
[address] [place] [address], [place] [phone] from Last 3 Months Insurance MEDICARE A & B Advance Directives * CPR (Attempt to Resuscitate) (Latest Code Status on File) Date Activated Date Inactivated Comments 11/25/2024 4:22 PM 11/26/2024 3:29 PM Question Answer Comments Code Status (Patient has no pulse and is not breathing): CPR (Attempt to Resuscitate) Medical Interventions (Patie nt has pulse or is breathing): Full Level Of Support Discussed With: Patient Care Teams Gamemaster Relationship Specialty Start Date End Date Osmany Victoria MD [address] [facility] [address] [place] [address] PCP - General Family Medicine 11/18/24
--- OUTSIDE RECORDS SUMMARY | 2025-08-19 08:51 | XMS_ITS | Patient Health Record ---
Author Organization [facility] Address [address] [place] [id number] Care Team Providers Care Quality Improvement Specialist Name Role Phone JulienImaniory Primary Care Provider Aliya Owens Unavailable [phone] Allergies No Known Allergies Results Component Value Reference Range Notes P-TSH Reviewed date:10/12/2024 01:00:31 PM Interpretation:Normal Performing Lab: Notes/Report: Test performed by [facility] [address] [place] [address] , [address], [place] [address] Emeka Hood MD, Harbour Master CLIA: [id number] TSH 2.90 0.43-5.25 mU/L CBC Fingerstick (in house) ( Not yet [...] - 38 plat 213 100 - 400 P-Comprehensive Metabolic Pa aamir (CMP) Reviewed date:01/13/2025 12:48:14 PM Interpretation:Normal Performing Lab: Notes/Report: Test performed by [facility] [address] [place] [address] , [address], [place] [address] Emeka Hood MD, Harbour Master CLIA: [id number] Sodium 142 135-145 mmol/L Potassium 4.5 3.5-5.3 [...] 0.3 <0.2-1.2 mg/dL A/G Ratio 1.5 1.1-2.5 P-Vitamin B12 Reviewed date:01/13/2025 12:48:14 PM Interpretation:Normal Performing Lab: Notes/Report: Test performed by [facility] [address] [place] [address] , [facility] [place] [address] Emeka Hood MD, Harbour Master CLIA: [id number] Vitamin B12 087 025-7128 pg/mL P-PSA Reviewed date:10/12/2024 01:00:31 PM Interpretation:Normal Performing Lab: Notes/Report: Test performed by [facility] [address] [place] [address] , [address], [place] [address] Emeka Hood MD, Harbour Master CLIA: [id number] PSA 0.56 <4.00 ng/mL Please note this is an ultrasensitive PSA assay with a lower limit of detection of 0.014 ng/mL. This test is performed by the Fernando ECLIA methodology. Values obtained with different assay methods or kits cannot be directly compared. P-Comprehensive Metabolic Pa aamir (CMP) Reviewed date:10/12/2024 01:00:31 PM Interpretation:co2- 35, gluc 119 Performing Lab: Notes/Report: Test performed by [facility] [address] [place] [address] , [address], [place] [address] Emeka Hood MD, Harbour Master CLIA: [id number] Sodium 144 135-145 mmol/L Potassium 5.0 3.5-5.3 mmol/L Chloride 104 97-108 mmol/L CO2 35 22-32 mmol/L Glucose 119 65-99 mg/dL BUN 15 8-23 mg/dL Creatinine 0.94 0.70-1.30 mg/dL Calcium 9.8 8.6-10.4 mg/dL eGFR by Creatinine 86 >59 mL/min/1.73m2 Protein 6.9 6.0-8.3 g/dL Albumin 4.4 3.5-5.3 g/dL Alkaline Phosphatase 87 40-129 IU/L ALT (SGPT) 35 <5-55 IU/L AST (SGOT) 27 <5-46 IU/L Bilirubin, Total 0.8 <0.2-1.2 mg/dL A/G Ratio 1.8 1.1-2.5 Cologuard Reviewed date:12/09/2024 01:24:11 PM Interpretation:Negative Performing Lab: Notes/Report: Negative Glycohemoglobin A1c (in hous e) Reviewed date:10/12/2024 09:11:34 AM Interpretation:6 Performing Lab: Notes/Report: 6 glycohemoglobin 6.0% 5 - 6.5 % Reason For Referral Reason needs follow-up CAD Diagnosis 1 Arteriosclerotic cor onary artery disease (I25.10) Referral Organization [facility] Referring Provider First Name Imani Delgado Referring Provider Last Name Julien Referring Provider Speciality [facility] Notes Christen Lopez 2024 03:19:10 PM > patient sees Avtar Wall; sent to [facility] Cardiology Referral Priority Routine Medications Medication SIG (Take, Route, Frequency, Duration) Notes Start Date End Date Status Levothyroxine Sodium 75 MCG TAKE 1 TABLE T BY MOUTH ONCE DAILY; Duration: 90 Active Nystatin-Triamcinolone 120361-2.1 UNIT/GM 1 application Externally Twice a day 02/08/2025 Active Potassium Chloride ER 8 MEQ 1 tab(s) Ora lly Once a day; Duration: 90 days Active Fluticasone Propionate 50 MCG/ACT 2 spray(s) intranasally once a day Active Losartan Potassium 50 MG 1/2 orally once a day; Duration: 30 day(s) Active Crestor 5 MG 1 tab(s) orally once a day; Duration: 30 day(s) Active Vitamin B-12 1000 MCG 1 tablet Orally On ce a day; Duration: 30 day(s) 01/11/2025 Active Benzonatate 200 MG 1 capsule as needed Orally Three times a day, prn 08/18/2025 Active Nystatin-Triamcinolone 744761-5.1 UNIT/GM 1 rajat applied topically 2 times a day Active Metoprolol Succinate ER 25 MG 1 tablet Orally Once a day Active metFORMIN HCl 500 MG 1 tablet with a rodney l Orally Once a day; Duration: 30 days Active Aspirin Low Dose 81 MG 1 tab(s) orally o nce a day 01/09/2017 Active Immunizations Vaccine Route Administration Date Status Comme nts COVID 19 Moderna Unknown 01/18/2021 Administered COVID 19 Moderna Unknown 02/15/2021 Administered COVID 19 Moderna Unknown 10/11/2021 Administered Fluzone High Dose (65yr and older) Unknown 08/14/2018 Administered Fluzone High Dose (65yr and older) IM Intramuscular 07/31/2021 Administered Fluzone High Dose (65yr and older) IM Intramuscular 07/25/2022 Administered Fluzone High Dose (65yr and older) IM Intramuscular 09/06/2023 Administered Fluzone High Dose (65yr and older) IM Intramuscular 08/19/2024 Administered PNEUMOVAX 23 VACCINE IM Intramuscular 10/27/2018 Administe red Prevnar (PCV13) IM Intramuscular 01/09/2017 Administered Problems Problem Type SNOMED Code ICD Code Onset Dates Problem Status W/U Status Risk Notes Problem Hypothyroidism (59881726) Hypothyroidism (acquired) (E03.9) Active confirmed Problem Vitamin D deficiency (83578985) Vitamin D deficiency (E55.9) Active confirmed Problem Vitamin B12 deficiency (992339722) Vitamin B12 deficiency (E53.8) Active confirmed Problem Essential hypertension (98218463) Essential hypertension (I10) Active confirmed Problem Seasonal allergy (627371119) Seasonal allergies (J30.2) Active confirmed Problem Hyperthyroidism (59455911) Hyperthyroidism (E05.90) Active confirmed Problem Paresthesia (55013790) Paresthesia (R20.2) Active confirmed Problem Mixed anxiety and depressive disorder (634340055) Depression with anxiety (F41.8) Active confirmed Problem Fatigue (47659425) Other fatigue (R53.83) Active confirmed Problem Tinea cruris (333967104) Tinea cruris (B35.6) Active confirmed Problem Atherosclerotic heart disease of [place] coronary artery without angina pectoris (208026227475540) Arteriosclerotic coronary artery disease (I25.10) Active confirmed Problem Hyperlipidaemia (18813152) Hyperlipidemia, unspecified hyperlipidemia type (E78.5) Active confirmed Problem Type II diabetes mellitus without complication (846673781) Type 2 diabetes mellitus without complication, without long-term current use of insulin (E11.9) Active confirmed Problem Benign prostatic hypertrophy without outflow obstruction (656617393) Benign prostatic hyperplasia without lower urinary tract symptoms (N40.0) Active confirmed Problem Body mass index 30.00 to 34.99 (947202424079470) Body mass index [BMI] 32.0-32.9, adult (Z68.32) Active confirmed Vital Signs Heart Rate 119 /min 08/18/2025 Blood pressure diastolic 60 mm Hg 08/18/2025 Height 70 in 08/18/2025 Blood pressure systolic 122 mm Hg 08/18/2025 Weight 226.4 lbs 08/18/2025 BMI 32.48 kg/m2 08/18/2025 Encounters Encounter Location Date Provider Diagnosis [facility] [address] [place] [id number] 08/19/2024 Imani Victoria Encounter for immunization Z23 [facility] [address] [facility] [address] [place], [place] [id number] 10/09/2024 Imani Victoria Essential hypertensi on I10 ; Other fatigue R53.83 ; Benign prostatic hyperplasia without lower urinary tract symptoms N40.0 ; Hypothyroidism (acquired) E03.9 ; Type 2 diabetes mellitus without complication, without long-term current use of insulin E11.9 ; Hyperlipidemia, unspecified hyperlipidemia type E78.5 and Screen for colon cancer Z12.11 [facility] [address] [facility] [address] [place], [place] [id number] 01/11/2025 Imani Victoria Essential hypertensi on I10 ; Hypothyroidism (acquired) E03.9 and Vitamin B12 deficiency E53.8 [facility] [address] [facility] [address] [place], [place] [id number] 02/08/2025 J Danny Julien Essential hypertensi on I10 ; Depression with anxiety F41.8 ; Arteriosclerotic coronary artery disease I25.10 ; Tinea cruris B35.6 ; Type 2 diabetes mellitus without complication, without long-term current use of insulin E11.9 ; Hyperlipidemia, unspecified hyperlipidemia type E78.5 ; Cardiomyopathy of undetermined type I42.9 and Body mass index [BMI] 32.0-32.9, adult Z68.32 [facility] [address] [place], [place] [id number] 08/18/2025 Aliya Owens Acute URI J06.9 [facility] [address] [place], [place] [id number] 10/12/2024 Imani Victoria [facility] [address] [place], [place] [id number] 12/21/2024 Imani Victoria [facility] [address] [place], [place] [id number] 02/09/2025 Imani Victoria [facility] [address] [place], [place] [id number] 05/28/2025 Imani Victoria [facility] [address] [place], [place] [id number] 08/17/2025 Imani Victoria Assessments Encounter Date Diagnosis (ICD Code) Assessment Notes Treatment Notes Treatment Clinical Notes Section Notes 08/19/2024 Encounter for immunization (ICD-10 - Z23) 10/09/2024 Essential hypertension (ICD-10 - I10) 10/09/2024 Other fatigue (ICD-10 - R53.83) 01/11/2025 Hypothyroidism (acquired) (ICD-10 - E03.9) 01/11/2025 Essential hypertension (ICD-10 - I10) 02/08/2025 Essential hypertension (ICD-10 - I10) 02/08/2025 Depression with anxiety (ICD-10 - F41.8) 08/18/2025 Acute URI (ICD-10 - J06.9) 10/09/2024 Benign prostatic hyperplasia without lower urinary tract symptoms (ICD-10 - N40.0) 02/08/2025 Arteriosclerotic coronary artery disease (ICD-10 - I25.10) 01/11/2025 Vitamin B12 deficiency (ICD-10 - E53.8) 10/09/2024 Hypothyroidism (acquired) (ICD-10 - E03.9) 02/08/2025 Tinea cruris (ICD-10 - B35.6) 02/08/2025 Type 2 diabetes mellitus without complication, without long-term current use of insulin (ICD-10 - E11.9) 10/09/2024 Type 2 diabetes mellitus without complication, without long-term current use of insulin (ICD-10 - E11.9) 10/09/2024 Hyperlipidemia, unspecified hyperlipidemia type (ICD-10 - E78.5) 02/08/2025 Hyperlipidemia, unspecified hyperlipidemia type (ICD-10 - E78.5) 10/09/2024 Screen for colon cancer (ICD-10 - Z12.11) 02/08/2025 Cardiomyopathy of undetermined type (ICD-10 - I42.9) 02/08/2025 Body mass index [BMI] 32.0-32.9, adult (ICD-10 - Z68.32) Plan Of Treatment Pending Test Test Name Order Date CBC Fingerstick (in house) 08/18/2025 Next Appt Details Provider Name:Imani Melgoza er, 09/20/2025 02:15:00 PM, [address], [place], [place], [id number], Insurance Providers Payer Name Payer Address Payer Phone Subscriber Number Group Number Insured Name Patient Relationship to Insured Coverage Start Date Coverage End Date MEDICARE [place] [address] [address] [place] [id number] TD BROOKE Self - patient is the insured [employer] (MEDICARE) [address] [address] [place] [address] [phone] [id number] BROOKE Self - patient is the insured Medications Administered Medication Instructions Date of Administration Dosage Notes B-12 04/18/2017 1 mL B-12 12/31/2017 1 mL B-12 01/01/2020 1 mL B-12 07/31/2021 1 mL B-12 01/11/2025 1 mL Dexamethasone 08/02/2017 1 mL Dexamethasone 12/03/2017 1 mL B-12 04/21/2021 1 mL B-12 01/06/2021 1 mL Medical (General) History Medical History History ICD Code Hypothyroidism 2011 Hypertension 2004 Cardiac stress test January 2017 [facility]-CPaP Surgical History Surgery Date(Month/Year) tonsillectomy Cardiac Stress Test x2 - negative result s February 2017 Heart Cath negative 01/19/2019 left inguinal herniorrhaphy 11/25/2024
--- OUTSIDE RECORDS SUMMARY | 2025-08-19 08:52 | XMS_ITS | Encounter Summary ---
Author Organization [facility] ([place], [place], [place], [place]) Address [address] [place] [address] Care Team Providers Care Type Casting Machine Operator Name Role Phone Unavailable Primary Care Provider Unavailabl e Reason for Referral * Consultation (Routine) - Authorized Specialty Diagnoses / Procedures Referred By Conthany t Referred To Contact Gastroenterology Diagnoses Change in bowel habits Osmany Victoria MD [address] [place] [address] Phone: tel: fax: [facility] [address] [place] [address] [address] [place] [phone] Phone: tel: fax: Referral ID Status Reason Start Date Expiration Date Visits Requested Visits Authorized [id number] Authorized Specialty Services Required 07/30/2025 07/30/2026 1 1 Encounter Details Date Type Department Care Team (Late st Contact Info) Description 07/30/2025 Outside Orders [facility] [address] [place] [address] [address] [place] [address] Coreen Munguia MD [address] [facility] [address] [place], [place] [id number] Change in bowel habits (Primary Dx) Social History Tobacco Use Types Packs/Day Years Used Date Smoking Tobacco: Never Assessed Sex and Gender Information Value Date Recorded Sex Assigned at Not on file Legal Sex Male 1:56 PM CDT Gender Identity Not on file Sexual Orientation Not on file documented as of this encounter Plan of Treatment Scheduled Referrals Name Type Priority Associated Diagnoses Order Schedule Ambulatory referral to Gastroenterology Outpatient Referral Routine Change in bowel habits Expected: 07/30/2025, Expires: 07/30/2026 documented as of this encounter Visit Diagnoses Diagnosis Change in bowel habits- Primary Other symptoms involving digestive system documented in this encounter
[2025-08-19] MEDS: IOPAMIDOL-370 (76%);100ML BOTTLE 100 ML IV (09:27)
[2025-08-19] MEDS: 0.9 % SODIUM CHLORIDE 50 ML VIAL IV (09:27)
[2025-08-19] MEDS: SODIUM CHLORIDE 0.9% 10ML SYR (RAD ONLY) 10 ML IV (09:27)
== END 2025-08-19 23:59 | disposition home or self-care (01) ==
LOC: RAD 08:41
PROVIDERS: PCP Family Medicine; Visit Provider Nurse Practitioner Family
DX: I71.21 Aneurysm of the ascending aorta, without rupture (principal); I25.10 Atherosclerotic heart disease of native coronary artery without angina pectoris; E78.5 Hyperlipidemia, unspecified; I11.9 Hypertensive heart disease without heart failure
CPT/HCPCS: 71275; Q9967